=== PATIENT | female | born 1945 | race Caucasian/White ===

== ENCOUNTER → 2018-11-20 13:30 | Outpatient (CLI) | payer MEDICARE, OTHER, SELFPAY ==
--- NOTE | 2018-11-20 | DI.MRI.S_ITS ---
PROCEDURE: MR LUMBAR SPINE WO CON INDICATIONS: Radiculopathy, lumbosacral region TECHNIQUE: Noncontrast sagittal T1 spin echo and T2 fast echo, sagittal STIR, axial T1 and T2 fast spin echo through the lumbar spine. In cases with scoliosis, additional coronal T2 fast spin echo may be performed. COMPARISON: [facility], XA, L/S-SPINE 2-3 VIEWS PAIN DEPT, 10/29/2012, 9:37. [facility], XA, LUMBOSACRAL SPINE 4 VWS PAIN, 06/28/2013, 8:39. [facility], MR, L-SPINE WITHOUT CONTRAST, 12/23/2013, 8:40. [facility], MR, L-SPINE WITHOUT CONTRAST, 10/17/2015, 11:29. [facility], MR, L-SPINE WITHOUT CONTRAST, 12/16/2011, 16:38. FINDINGS: Image quality: Excellent. Alignment and Curvature: Mild dextroconvex scoliotic curvature is seen. Bone Marrow: Marrow is of normal overall signal. No acute vertebral body compression fractures. Scattered foci are seen, which are hyperintense on T1-weighted and T2-weighted imaging, which are most consistent with benign vertebral body hemangiomas. Spinal Cord: Conus medullaris terminates at the L1 level. Visualized cord demonstrates normal signal and size. Paraspinous Soft Tissues: No paravertebral masses. A 3 cm liver cyst is seen posteriorly and medially. T12-L1: Normal appearance. L1-L2: Normal appearance. L2-L3: Mild levoconvex scoliotic curvature is noted. Moderate disc bulge is seen, which is eccentric to the right. Mkis-da-liryzofa facet hypertrophy is seen. There is mild to moderate left-sided and moderate right-sided neural foraminal narrowing seen. These imaging findings have progressed compared to the prior study. L3-L4: Moderate to severe loss of disc height and disc signal are seen. There is a nonacute Schmorl's node seen at the superior endplate of L4. Reactive marrow endplate changes are seen, which are hyperintense on T1-weighted and T2-weighted imaging and most consistent with fatty metaplasia (Modic type II changes). Moderate disc bulge is seen, which is slightly eccentric to the left. Moderate facet joint hypertrophy is seen. Moderate bilateral neural foraminal narrowing is seen, left worse than right. Moderate central canal narrowing is seen. When comparison is made with the prior examination, these findings are similar. L4-L5: Moderate to severe loss of disc height and disc signal are seen. Endplate irregularity is seen. Moderate disc bulge is seen, which is eccentric to the left. There is mild to moderate right-sided and moderate left-sided neural foraminal narrowing seen. Moderate bilateral neural foraminal narrowing is seen, left worse than right. No significant change from the prior. L5-S1: The disc height is well-preserved. Loss of disc signal is seen at this level. Mild generalized disc bulge is seen. There is moderate right-sided and mild left-sided facet hypertrophy seen. Moderate bilateral neural foraminal narrowing is seen, right worse than left. No significant central canal narrowing is seen. There is a synovial cyst seen on the right that is unrelated to the thecal sac. Stable from the prior study. 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 IMPRESSION: Lower lumbar spine degenerative changes are seen, with progression of degenerative change at the L2-L3 level compared to the prior MRI. Dictated by: Kyle Lopez M.D. on 11/22/2018 at 8:08 Approved by: Kyle Lopez M.D. on 11/22/2018 at 8:15
== END ==
PROVIDERS: Family Provider Family Medicine; PCP Family Medicine; Visit Provider Physical Medicine & Rehabilitation Pain Medicine
DX: M47.26 Other spondylosis with radiculopathy, lumbar region (principal); M47.27 Other spondylosis with radiculopathy, lumbosacral region; M41.86 Other forms of scoliosis, lumbar region
CPT/HCPCS: 72148

== ENCOUNTER → 2019-04-22 07:08 | Outpatient (CLI) | payer MEDICARE, OTHER, SELFPAY ==
[2019-04-22 08:00] LABS: BUN Creatinine Ratio 16.7 (6-22); Blood Urea Nitrogen 15 mg/dL (7-17); Calcium 9.8 mg/dL (8.4-10.2); Carbon Dioxide 28 mmol/L (22-32); Chloride 101 mmol/L (98-107); Cholesterol 232 mg/dL (140-199); Estimated Glomerular Filt Rate > 60.0 mL/min (>60); Glucose 87 mg/dL (80-110); HDL Cholesterol 77 mg/dL (40-60); HEMOLYSIS < 15 (0-50); LDL Cholesterol Calculated 141 mg/dL (<100); Potassium 4.6 mmol/L (3.4-5.1); Sodium 136 mmol/L (137-145); Triglycerides 71 mg/dL (35-150)
== END ==
PROVIDERS: PCP Internal Medicine; Visit Provider Internal Medicine
DX: I10 Essential (primary) hypertension (principal); E78.5 Hyperlipidemia, unspecified
CPT/HCPCS: 36415; 80048; 80061

== ENCOUNTER → 2019-05-04 09:30 | Outpatient (CLI) | payer MEDICARE, OTHER, SELFPAY ==
--- NOTE | 2019-05-04 | DI.MG.S_ITS ---
BILATERAL DIGITAL SCREENING MAMMOGRAM 3D/2D WITH CAD: 05/04/2019 CLINICAL: Routine screening. Family history of breast cancer. Comparison is made to exams dated: 09/12/2016 mammogram, 06/16/2014 mammogram, and 02/18/2012 mammogram - [facility]. The tissue of both breasts is heterogeneously dense. This may lower the sensitivity of mammography. Current study was also evaluated with a Computer Aided Detection (CAD) system. No significant masses, calcifications, or other findings are seen in either breast. There has been no significant interval change. IMPRESSION: NEGATIVE There is no mammographic evidence of malignancy. A 1 year screening mammogram is recommended. This exam was interpreted at Station ID: [id number]. NOTE: For mammograms, a report in lay terms will be sent to the patient. Approximately 15% of breast malignancies will not be visualized mammographically. In the management of a palpable breast mass, a negative mammogram must not discourage biopsy of a clinically suspicious lesion. Electronically Signed By: Robina anthony/vito:05/04/2019 14:14:23 letter sent: Normal Exam ACR BI-RADS Category 1: Negative [id number]
== END ==
PROVIDERS: PCP Internal Medicine; Visit Provider Internal Medicine
DX: Z12.31 Encounter for screening mammogram for malignant neoplasm of breast (principal); Z80.3 Family history of malignant neoplasm of breast; M85.851 Other specified disorders of bone density and structure, right thigh; Z78.0 Asymptomatic menopausal state; Z90.722 Acquired absence of ovaries, bilateral
CPT/HCPCS: 77063; 77067; 77080

== ENCOUNTER → 2019-05-13 06:12 | Outpatient (CLI) | payer MEDICARE, OTHER, SELFPAY ==
--- NOTE | 2019-05-13 | DI.MRI.S_ITS ---
PROCEDURE: MR CERVICAL SPINE WO CON INDICATIONS: Cervicalgia TECHNIQUE: Noncontrast sagittal T1 spin echo and T2 fast spin echo, sagittal STIR, foraminal oblique sagittal T2 fast spin echo, and axial gradient echo or T2 fast spin echo through the cervical spine. COMPARISON: [facility], , C-SPINE WITHOUT CONTRAST, 07/28/2014, 18:15. FINDINGS: Image quality: Excellent. Alignment and Curvature: Very minimal degenerative anterolisthesis of C6 on C7 and of C5 on C6. Very minimal degenerative anterolisthesis of C4 on C5 and of C3 on C4. Bone Marrow: Marrow demonstrates normal overall signal. Spinal Cord: Visualized spinal cord has normal size and signal. No cerebellar tonsillar herniation. Paraspinous Soft Tissues: No paravertebral masses. Prevertebral soft tissues are normal in thickness. C2-C3: No canal stenosis. Bilateral facet hypertrophy. Right foramen is patent. Moderate left foraminal narrowing with flattening of the left C3 nerve root sleeve. C3-C4: AP diameter of the canal is 1.1 cm. Left greater than right facet hypertrophy. Left greater than right uncovertebral joint hypertrophy. Moderate right foraminal narrowing with flattening of right left C4 nerve root. Severe left foraminal narrowing with nerve root impingement. C4-C5: Moderate disc height loss. Diffuse posterior osteophyte, eccentric to the left. Flattening of the ventral aspect of the cord. Moderate canal stenosis. Prominent bilateral uncovertebral joint hypertrophy and facet hypertrophy. Severe bilateral foraminal narrowing with nerve root impingement. C5-C6: Minimal degenerative retrolisthesis of C5 on C6. Diffuse posterior disc bulge. Bilateral facet hypertrophy and uncovertebral joint osteophyte. Severe right and moderately severe left foraminal narrowing with bilateral foraminal nerve root impingement. C6-C7: Minimal degenerative retrolisthesis of C6 on C7. Diffuse posterior disc bulge plus osteophyte, asymmetric to the right. Moderate canal stenosis. Bilateral facet hypertrophy. Bilateral uncovertebral joint hypertrophy. Severe bilateral foraminal narrowing with foraminal nerve root impingement. C7-T1: No canal stenosis or foraminal stenosis. IMPRESSION: 1. Diffuse spondylitic change. 2. Moderate multifactorial canal stenosis at C4-C5 through C6-C7. 3. Significant multilevel foraminal narrowing as described above. Dictated by: Dong Chavarria M.D. on 05/13/2019 at 8:14 Approved by: Dong Chavarria M.D. on 05/13/2019 at 8:31
== END ==
PROVIDERS: PCP Internal Medicine; Visit Provider Physical Medicine & Rehabilitation Pain Medicine
DX: M54.2 Cervicalgia (principal); M48.02 Spinal stenosis, cervical region
CPT/HCPCS: 72141

== ENCOUNTER → 2019-06-27 07:31 | Outpatient (CLI) | payer MEDICARE, OTHER, SELFPAY ==
[2019-06-27 08:38] LABS: Alanine Aminotransferase 20 IU/L (<35); Aspartate Aminotransferase 31 IU/L (14-36); Cholesterol 186 mg/dL (140-199); HDL Cholesterol 78 mg/dL (40-60); LDL Cholesterol Calculated 94 mg/dL (<100); Triglycerides 72 mg/dL (35-150)
== END ==
PROVIDERS: PCP Internal Medicine; Visit Provider Internal Medicine
DX: E78.00 Pure hypercholesterolemia, unspecified (principal)
CPT/HCPCS: 36415; 80061; 84450; 84460

== ENCOUNTER → 2020-02-27 07:24 | Outpatient (CLI) | payer MEDICARE, OTHER, SELFPAY ==
[2020-02-27 08:02] LABS: Add Manual Diff / Slide Review NO; Basophils Absolute Auto 0 /uL (0-100); Basophils Percent Auto 0.7 % (0-2); Eosinophils Absolute Auto 100 /uL (0-450); Eosinophils Percent Auto 1.9 % (2-4); Hemoglobin 12.7 g/dL (12.0-16.0); Lymphocytes Absolute Auto 1400 /uL (1100-4500); Lymphocytes Percent Auto 35.6 % (25-40); Mean Corpuscular HGB Conc 34.2 % (30-36); Mean Corpuscular Hemoglobin 31.4 PG (26-34); Mean Corpuscular Volume 91.7 fL (80-100); Monocytes Absolute Auto 400 /uL (0-900); Monocytes Percent Auto 10.7 % (3-14); Neutrophils Absolute Auto 2000 /uL (1500-7000); Neutrophils Percent Auto 51.1 % (50-75); Platelet Count 285 X10^3/uL (150-400); Red Blood Cell Count 4.03 X10^6/uL (4.0-5.2); Red Cell Distribution Width 13.2 % (11.6-14.8); White Blood Cell Count 3.9 X10^3/uL (4.5-11.0)
[2020-02-27 08:22] LABS: BUN Creatinine Ratio 17.4 (6-22); Blood Urea Nitrogen 15 mg/dL (7-17); Calcium 9.9 mg/dL (8.4-10.2); Carbon Dioxide 29 mmol/L (22-32); Chloride 100 mmol/L (98-107); Estimated Glomerular Filt Rate > 60.0 mL/min (>60); Glucose 93 mg/dL (80-110); HEMOLYSIS < 15 (0-50); Potassium 4.6 mmol/L (3.4-5.1); Sodium 134 mmol/L (137-145)
== END ==
PROVIDERS: PCP Internal Medicine; Referring Provider Specialist; Visit Provider Specialist
DX: Z01.818 Encounter for other preprocedural examination (principal); I10 Essential (primary) hypertension
CPT/HCPCS: 36415; 80048; 85025

== ENCOUNTER → 2020-03-02 08:43 | Outpatient (CLI) | payer MEDICARE, OTHER, SELFPAY ==
[2020-03-04 02:39] LABS: COVID19 Sendout Not Detected (Not Detect)
== END ==
PROVIDERS: PCP Internal Medicine; Visit Provider Physician Assistant
DX: Z01.818 Encounter for other preprocedural examination (principal)
CPT/HCPCS: 87635

== ENCOUNTER 2020-03-05 08:51 | Day surgery (SDC) | payer MEDICARE, OTHER, SELFPAY ==
[2020-02-28 07:22] VITALS: BMI 20.2
[2020-03-05] VITALS (14 sets, daily range): BP systolic 126–156; BP diastolic 67–85; PULSE 68–94; RESP 12–19; TEMP 36–37.2; O2SAT 98–100; BMI 20.2
[2020-03-05] MEDS: LACTATED RINGERS 1,000 ML 100 ML IV ×3 (09:21→22:49)
--- NOTE | 2020-03-05 09:59 | PM.PREOP ---
Pre-operative Note COVID-19 COVID-19 status: Negative Result date/Date tested (Pos, Neg/Pending): 03/02/20 Interval Note History & Physical reviewed/Exam performed by Physician: Yes Changes to H&P: No
[2020-03-05] MEDS: CEFAZOLIN 2 GM/100 ML FROZ.PIGGY IV (11:06)
--- NOTE | 2020-03-05 11:28 | SUR.OPER ---
Lithotomy on padded OR bed, head on pillow, arms secured on padded arm boards at <90 degrees abduction. Legs secured in padded yellow fins stirrups.
[2020-03-05] MEDS: BUPIVACAINE 0.5% W/ EPI (PF) 30 ML VIAL INJ (11:33)
[2020-03-05] MEDS: SODIUM CHLORIDE 0.9% 50 ML INJ (11:33)
--- NOTE | 2020-03-05 12:02 | PM.OP.1 ---
Operative Date/Time/Diagnoses Date of procedure: 03/05/20 Time of procedure: 12:02 Pre-op diagnosis: symptomatic cystocele post hysterectomy Post-op diagnosis: same Procedure & Clinicians Procedure: anterior repair Same procedure as scheduled: Yes Indications: symptomatic cystocele with no incontinence post hysterectomy Surgeon: Dacia Muñoz Click Yes if Unassisted: Yes Anesthesia Type: General Operative Notes Findings: cystocele that prolapses to the hymen with urethral well-supported an vaginal cuff with minimal prolapse and no rectocele Closure Type: primary Specimen(s): none sent Applied: catheter ( Mixon) and other ( vaginal packing) Estimated Blood Loss (mL): 10 Blood products transfused: none Procedure in detail: Patient was brought to the operating room where she underwent general anesthesia. She was placed in low Yellofin stirrups and prepped and draped in the usual sterile fashion. Warming was in place. 2 g of Ancef were in prior to beginning of the case. Pulsatile stockings were in place and functional. A check system was reviewed with the staff in the room prior to beginning the case. A Mixon catheter was placed. The area of the cystocele was injected with 30 cc of 0.5% Marcaine with epinephrine. Incision was made over the cystocele with a scalpel. Dissection was undertaken laterally with sharp and blunt dissection. The cystocele caliber was decreased with a pursestring suture of 2 0 Vicryl. Plicating sutures of 0 Vicryl suture were placed followed by a layer of 2 0 Vicryl plicating sutures. The vaginal incision was repaired with running 2 0 Vicryl suture. Vaginal packing was placed. Patient went to recovery room in good condition. Counts of instruments and sponges were correct Complications: none Post-operative Condition: stable Disposition: Acute Care Plan for aftercare: Will remove vaginal packing and Mixon in a.m. patient will be discharged after bladder trial
[2020-03-05] MEDS: ONDANSETRON 4 MG/2 ML INJ IV (12:05)
--- NOTE | 2020-03-05 12:57 | SUR.PHASEI ---
Pt transferred to room 204 via bed with all belongings. Pt's last vital signs stable and pain controlled; see flowsheet documentation for details. Report given to GISSELLE Shultz prior to transfer. Upon arrival to room 204 GISSELLE John at bedside; handoff assessment completed. Carrington to assume care of pt at this time.
--- NOTE | 2020-03-05 13:12 | PC.NURSE ---
Day shift: Pt on unit at approx 1300 from PACU. Oriented to room and call light. Agrees to not get OOB w/o help from staff. Tolerating SCD's. Pt has no c/o pain or discomfort. VS WNL. Call light in reach.
--- NOTE | 2020-03-05 15:50 | PC.NURSE ---
Assumed care of pt at 1500. Pt resting in bed during bedside hand-off. Denies pain. Mixon draining to gravity. VAG packing and dom-pad in place. Dom-pad c/d/i. Pt states she takes Ambien at and would like some tonight. Msg left with Dr. Muñoz's office. Awaiting orders. Pt verbalized she will call for needs.
[2020-03-05] MEDS: ACETAMINOPHEN 325 MG TABLET 650 MG PO (23:51)
[2020-03-06] VITALS: BP 126/68; PULSE 70; RESP 16; TEMP 36.3; O2SAT 97
[2020-03-06 00:05] VITALS: O2SAT 97
[2020-03-06] MEDS: ACETAMINOPHEN 325 MG TABLET 650 MG PO (05:16)
[2020-03-06 05:45] VITALS: BP 120/64; PULSE 66; RESP 16; TEMP 36.2; O2SAT 98
[2020-03-06] MEDS: AMLODIPINE 5 MG TABLET PO (07:35)
[2020-03-06] MEDS: lisinopriL 20 MG TABLET PO (07:35)
[2020-03-06] MEDS: IBUPROFEN 600 MG TABLET PO (08:03)
[2020-03-06 08:06] VITALS: O2SAT 98
--- NOTE | 2020-03-06 08:44 | CM.DANOTE ---
DCP: Case received, EMR reviewed and met with patient. Introduced self and role. Was able to obtain information from patient regarding baseline activity level prior to surgery. DCP assessment completed with information currently available. Patient is a 74 year old female who admitted yesterday morning to the care of the surgical/OBGYN team. PCP: Dr. Reina Best. Payer: confirmed: Medicare/[employer]. Patient came to the hospital for a surgical procedure. She had a Urethrocele performed yesterday. Met with patient in her room. She was sitting up in bed. She is independent, drives. Confirmed that she lives with her , Chip. She also mentioned that he does have some Parkinsons, but is high functioning, and also drives. She stated that he will assist her at home for any needs. P: DCP to continue to follow. Patient should be able to go home when she is medically stable. Malou De La Vega RN/Journe[employer] Pipe [employer]
[2020-03-06 08:52] VITALS: BP 126/67; PULSE 67; RESP 15; TEMP 36.2; O2SAT 100
--- NOTE | 2020-03-06 09:42 | PM.DS.1 ---
History of Present Illness History of Present Illness Date Patient Seen: 03/06/20 Time Patient Seen: 09:42 Chief complaint: PELVIC *OPB* Narrative: Patient with symptomatic cystocele who underwent a anterior repair on 03/05/2020. Patient is feeling well. She only use Tylenol for pain. Her Mixon catheter and vaginal packing were removed. Patient passed her bladder trial and was discharged home Discharge Providers Provider Discharge Date: 03/06/20 Primary care physician: Reina Best MD Discharge provider: Dacia Watson MD Summary Hospital Course Discharge Diagnosis: Cystocele Hospital Course: Patient underwent an anterior repair on 03/05/2020 for symptomatic cystocele post hysterectomy. Patient had her vaginal packing and Mixon catheter removed on 03/06/2020. Patient was able to urinate with a minimal postvoid residual. Status at Discharge Cognitive/behavioral status at discharge: oriented Functional status at discharge: independent ambulation Overall status at discharge: patient is progressing back to baseline Time Spent with Patient Time spent: Less than 30 minutes Exam Vital Signs (past 8 hours): - 03/06/20 05:45 03/06/20 08:06 Temperature 97.2 F L Pulse Rate 66 Respiratory Rate 16 Blood Pressure 120/64 Pulse Oximetry 98 98 Oxygen Delivery Method Room Air Oxygen Flow Rate 0 Narrative Exam Narrative: Patient's abdomen is soft, nontender. External genitalia and normal. Vaginal packing removed with small amount of blood on it. Mixon catheter removed. Extremities without edema and nontender. Discharge Assessment & Plan Assessment and Plan Assessment: Symptomatic cystocele post anterior repair Plan of Treatment: Home l Discharge Plan Discharge Plan Patient Disposition: Home Discharge Med Rec/Prescriptions Prescriptions: Continued doxycycline hyclate 20 mg tablet 20 mg PO ONCE RF: 0 zolpidem 5 mg tablet 5 mg PO BEDTIME PRN (Reason: Sleep) RF: 0 lisinopril 20 mg tablet 20 mg PO DAILY RF: 0 atorvastatin 10 mg tablet 10 mg PO DAILY RF: 0 amlodipine 5 mg tablet 5 mg PO DAILY RF: 0 Follow up/Referrals: Dacia Watson MD [Physician] - 2 Weeks (appt:03/22 @ 3:[address] watson please arrive 15 minutes prior to your scheduled appointment ) Reina Best MD [Primary Care Provider] - Discharge Orders: Discharge (Order); Ordered 03/06/20 Ordered By: Dacia Watson Provider Discharge Instructions Diet: Regular Activity: Nothing in vagina or lifting over 20 lb for 6 weeks Skin/Wound/Dressing Care Report to your healthcare provider any signs of infection, such as:: chills, fever and increased pain Visit Report/Discharge Packet Instructions: Cystocele and Rectocele Repair, How to Prevent Falls Stand Alone Forms: Surgery Discharge Discharge Data Primary Care Provider: Reina Best Attending Provider: Dacia Watson Discharges patient from system. Discharge Date/Time: 03/06/20 11:24 Quality VTE Deep Vein Thrombosis/Pulmonary Embolism Present on Admission: No
--- NOTE | 2020-03-06 11:09 | PC.NURSE ---
Day shift: Pt voided approx 500ml of urine w/ 12mls post residual per bladder scan. Per MD orders ok for Pt to d/c now.
--- NOTE | 2020-03-06 11:23 | PC.NURSE ---
Day shift: Pt taken to car driven by spouse in WC by LUDWIN. Paperwork is signed and all questions answered. Pt has all personal belongings. NO new MD scripts. Pt verbalized being so happy to be going home at this time.
== END 2020-03-06 11:24 | disposition home or self-care (01) ==
LOC: OR 12:24 → AC 12:25
PROVIDERS: PCP Internal Medicine; Referring Provider Specialist; Visit Provider Specialist
PROC: (CPT 57240; principal; 2020-03-05 10:15)
DX: N81.11 Cystocele, midline (principal); I10 Essential (primary) hypertension; E78.5 Hyperlipidemia, unspecified
CPT/HCPCS: 57240; J0690; J1100; J2250; J2405; J2704; J3010

== ENCOUNTER → 2020-09-27 07:01 | Outpatient (CLI) | payer MEDICARE, OTHER, SELFPAY ==
[2020-03-05 13:09] VITALS: BMI 20.2
[2020-09-27 08:29] LABS: Alanine Aminotransferase 21 IU/L (<35); Albumin Globulin Ratio 1.4 (1.0-2.8); Alkaline Phosphatase 90 U/L (38-126); Aspartate Aminotransferase 29 IU/L (14-36); Bilirubin Total 0.6 mg/dL (0.2-1.3); Blood Urea Nitrogen 13 mg/dL (7-17); Calcium 9.8 mg/dL (8.4-10.2); Carbon Dioxide 32 mmol/L (22-32); Chloride 103 mmol/L (98-107); Cholesterol 174 mg/dL (140-199); Estimated Glomerular Filt Rate 58.8 mL/min (>60); Globulin 2.9 g/dL (1.7-4.1); Glucose 87 mg/dL (80-110); HDL Cholesterol 86 mg/dL (40-60); HEMOLYSIS < 15 (0-50); LDL Cholesterol Calculated 75 mg/dL (<100); Potassium 4.5 mmol/L (3.4-5.1); Sodium 136 mmol/L (137-145); Total Protein 6.9 g/dL (6.3-8.2); Triglycerides 66 mg/dL (35-150)
== END ==
PROVIDERS: PCP Internal Medicine; Referring Provider Internal Medicine; Visit Provider Internal Medicine
DX: E78.00 Pure hypercholesterolemia, unspecified (principal)
CPT/HCPCS: 36415; 80053; 80061

== ENCOUNTER → 2020-12-26 11:45 | Outpatient (CLI) | payer MEDICARE, OTHER, SELFPAY ==
[2020-03-05 13:09] VITALS: BMI 20.2
== END ==
PROVIDERS: PCP Internal Medicine; Referring Provider Specialist; Visit Provider Specialist
DX: R39.9 Unspecified symptoms and signs involving the genitourinary system (principal)
CPT/HCPCS: 87077; 87086; 87186

== ENCOUNTER → 2021-02-06 06:40 | Outpatient (CLI) | payer MEDICARE, OTHER, SELFPAY ==
[2020-03-05 13:09] VITALS: BMI 20.2
--- NOTE | 2021-02-06 | DI.MRI.S_ITS ---
PROCEDURE: MR HEAD/BRAIN WO/W CON INDICATIONS: Unspecified hearing loss, unspecified ear TECHNIQUE: Noncontrast sagittal T1 spin echo, axial T2 fast spin echo, axial FLAIR, axial gradient echo, axial diffusion and ADC through the brain. Axial/sagittal/coronal 3-D CISS, thin-slice axial T1 spin echo with fat saturation through the skull base. After the administration of contrast, axial and coronal thin-slice T1 spin echo with fat saturation through the skull base, axial T1 spin echo with fat saturation through the brain. COMPARISON: None. FINDINGS: Image quality: Excellent. The ventricular system and cortical sulci demonstrate atrophy, consistent for the patient's stated age. There are areas of increased T2/FLAIR signal intensity within the periventricular and subcortical white matter. There is no acute intra-or extra axial fluid collection. No acute hemorrhage, mass lesion or midline shift. Brainstem is unremarkable. There are no areas of restricted diffusion. Visualized cranial nerves and cerebellopontine angles demonstrate no areas of abnormal signal, mass lesion or enhancement. Globes are symmetrical. Sinuses are aerated. Osseous structures are intact. IMPRESSION: 1. No acute intracranial process. 2. Moderate atrophy and chronic microvascular ischemic changes. 3. Visualized cranial nerves and cerebellopontine angles demonstrate no areas of abnormal signal, mass lesion or enhancement. Dictated by: Odilia Andrea M.D. on 02/06/2021 at 15:02 Approved by: Odilia Andrea M.D. on 02/06/2021 at 15:05
== END ==
PROVIDERS: PCP Internal Medicine; Referring Provider Internal Medicine; Visit Provider Internal Medicine
DX: H92.02 Otalgia, left ear (principal); H91.90 Unspecified hearing loss, unspecified ear
CPT/HCPCS: 70553

== ENCOUNTER 2021-03-20 07:30 | Outpatient (RCR) | payer MEDICARE, OTHER, SELFPAY ==
[2020-03-05 13:09] VITALS: BMI 20.2
--- NOTE | 2021-02-06 16:13 | PT.OIE ---
Current Diagnoses Other specified disorders of muscle (02/06/21) Past Medical History (Last Updated 02/28/20 @ 07:26 by Consuelo Bowling RN) Cystitis Glomerulonephritis History of arthroscopy History of hysterectomy (1999) History of laparotomy History of surgery (1999) Hx of appendectomy Hx of bilateral cataract extraction (2015) Pneumonia Past Surgical History (Last Updated 02/28/20 @ 07:34 by Consuelo Bowling RN) History of arthroscopy History of hysterectomy (1999) History of laparotomy History of surgery (1999) Hx of appendectomy Hx of bilateral cataract extraction (2014) Visit Care Team Role Provider Type Reina Best MD Primary Care Provider Physician Specialty: Internal Medicine Address: [address] [place] [address] Email: [email or web address] Dacia Muñoz MD Attending Provider Physician Referring Provider Specialty: SALAD BAR CLERK Address: [address] [place] [address], [id number] Email: [email or web address] Therapy Initial Evaluation PT-OP-A Visit Information Start: 02/05/21 15:25 Freq: Status: Active Protocol: Document 02/06/21 08:15 AMB (Rec: 02/06/21 15:52 AMB [id number]) Out-Patient Physical Therapy Visit Information Visit Information Visit Type Initial Evaluation PT-OP-B Current Condition Start: 02/05/21 15:25 Freq: Status: Active Protocol: Document 02/06/21 08:14 AMB (Rec: 02/06/21 08:43 AMB [id number]) Current Condition History of Current Condition History of Current Condition Difficulty voiding urine after a bowel movement. Everything was good after surgery but still has a little bit of fullness. Leaking as colon fills. Had a hysterectomy in , cystocele repair with mesh . Internal pressure that can cause leaking. BM 2x/day 3-4 bristol stool scale. 2 vaginal deliveries with a forceps delivery, normal delivery but did tear with second. Constant coughing. PT-OP-C Subjective Start: 02/05/21 15:25 Freq: Status: Active Protocol: Document 02/06/21 16:06 AMB (Rec: 06/30/21 16:11 AMB [id number]) Patient Questionnaires Pelvic Pain and Urgency/Frequency Patient Symptom Scale Pelvic Pain Score 6 PT-OP-I Pelvic Floor Start: 02/05/21 15:25 Freq: Status: Active Protocol: Document 02/06/21 16:06 AMB (Rec: 02/06/21 16:11 AMB [id number]) Pelvic Floor Assessment Urine Pelvic Floor Surgery Yes: hysterectomy, then bladder sling surgery, Urinary Symptoms Hesitancy,Falling Out Feeling/ Heavy Leakage Size Small Other Leakage Causes full rectum Nocturia 2-3 Urine Pad Type Panty Liner Bowel Bowel Surgery No Bowel Movement Frequency 2x/day [place] Stool Chart Type 1-7 3 Pelvic Clock Pelvic Clock 12-3 Atrophy,Hypertonic Pelvic Clock 3-6 Atrophy,Hypertonic Pelvic Clock 6-9 Atrophy,Hypertonic Pelvic Clock 9-12 Atrophy,Hypertonic Contraction Ability Voluntary Contraction Weak Voluntary Relaxation Weak Manual Muscle Testing Left 1 Manual Muscle Testing Right 1 Manual Muscle Testing Anterior 1 Manual Muscle Testing Posterior 2 Muscle Endurance (Seconds) 2 Number of Quick Contractions In 10 3 Seconds Comments Pelvic Floor Comments poor control and tendency to use glutes and hold breath to try to contract PT-OP-T Assessment and Plan Start: 02/05/21 15:25 Freq: Status: Active Protocol: Document 02/06/21 08:15 AMB (Rec: 02/06/21 15:52 AMB [id number]) Physical Therapy Assessment Rehab Potential Rehabilitation Potential Good Evaluation Complexity Number of Personal Factors/Comorbidities 1-2 Number of Body Systems Impaired 3 Clinical Presentation at Evaluation Evolving Impairments Impairments Functional Activities,Soft Tissue Mobility,Strength Goals Three Impairment Incomplete emptying Short Term Goal (STG) Jessica will be able to completley void her bladder no matter if she has had a bowel movement in the last few hours or not. STG Duration 4 weeks Two Impairment Urinary leaking Nonprofit Director Goal (LTG) Jessica will employ pelvic floor contractions so that she can avoid leaking urine no matter how full her rectum is. LTG Duration 8 weeks One Impairment Pelvic floor strength Short Term Goal (STG) Jessica will improve her pelvic floor strength to 3/5. STG Duration 4 weeks Skilled Nursing Goal (LTG) Jessica will improve her pelvic floor strength so she can perform a kegel for 10 seconds in standing. LTG Duration 8 weeks Assessment Summary Assessment Jessica attends physical therapy s/p multiple surgeries for pelvic organ prolapse. Currently her main symptom is not being able to fully void urine when the colon is full . She has 2 bowel movements a day and does not have signficant constipation or significant prolapse. She is quite weak with her pelvic floor contractions, tending to use glutes and hold her breath instead of activating her pelvic floor. She will benefit from physical therapy to help her improve her pelvic floor strength to decrease her urinary leaking and pelvic pressure. Physical Therapy Plan Frequency and Duration Frequency of Treatment 1x/Week Duration of Treatment 8 weeks Plan of Care Start Date 02/06/21 Plan of Care End Date 04/03/21 Therapeutic Interventions Therapeutic Interventions Home Exercise Program,Manual Therapy,Neuromuscular Re- education,Self-Care/Home Management,Soft Tissue Mobilization,Therapeutic Activities,Therapeutic Exercises Modalities Biofeedback,Electric Stimulation Next Visit Focus/Plan Next Note Type Treatment Note Next Visit Plan pelvic floor strengthening with discussion of pressure management options
--- NOTE | 2021-02-06 16:13 | PT.OPPOC ---
Physical, Occupational & Speech Therapy At [facility] Current Diagnoses Other specified disorders of muscle (02/06/21) Visit Care Team Role Provider Type Reina Best MD Primary Care Provider Physician Specialty: Internal Medicine Address: [address] [place] [address], [id number] Email: [email or web address] Dacia Muñoz MD Attending Provider Physician Referring Provider Specialty: [employer] Address: [address] [place] [address], [address] Email: [email or web address] Plan Of Care PT-OP-T Assessment and Plan Start: 02/05/21 15:25 Freq: Status: Active Protocol: Document 02/06/21 08:15 AMB (Rec: 02/06/21 15:52 AMB [id number]) Physical Therapy Assessment Rehab Potential Rehabilitation Potential Good Evaluation Complexity Number of Personal Factors/Comorbidities 1-2 Number of Body Systems Impaired 3 Clinical Presentation at Evaluation Evolving Impairments Impairments Functional Activities,Soft Tissue Mobility,Strength Goals Three Impairment Incomplete emptying Short Term Goal (STG) Jessica will be able to completley void her bladder no matter if she has had a bowel movement in the last few hours or not. STG Duration 4 weeks Two Impairment Urinary leaking [employer] Goal (LTG) Jessica will employ pelvic floor contractions so that she can avoid leaking urine no matter how full her rectum is. LTG Duration 8 weeks One Impairment Pelvic floor strength Short Term Goal (STG) Jessica will improve her pelvic floor strength to 3/5. STG Duration 4 weeks [employer] Goal (LTG) Jessica will improve her pelvic floor strength so she can perform a kegel for 10 seconds in standing. LTG Duration 8 weeks Assessment Summary Assessment Jessica attends physical therapy s/p multiple surgeries for pelvic organ prolapse. Currently her main symptom is not being able to fully void urine when the colon is full . She has 2 bowel movements a day and does not have signficant constipation or significant prolapse. She is quite weak with her pelvic floor contractions, tending to use glutes and hold her breath instead of activating her pelvic floor. She will benefit from physical therapy to help her improve her pelvic floor strength to decrease her urinary leaking and pelvic pressure. Physical Therapy Plan Frequency and Duration Frequency of Treatment 1x/Week Duration of Treatment 8 weeks Plan of Care Start Date 02/06/21 Plan of Care End Date 04/03/21 Therapeutic Interventions Therapeutic Interventions Home Exercise Program,Manual Therapy,Neuromuscular Re- education,Self-Care/Home Management,Soft Tissue Mobilization,Therapeutic Activities,Therapeutic Exercises Modalities Biofeedback,Electric Stimulation Next Visit Focus/Plan Next Note Type Treatment Note Next Visit Plan pelvic floor strengthening with discussion of pressure management options Plan of Care Dates Plan of Care Start Date 02/06/21 Plan of Care End Date 04/03/21 Electronically Signed by: Jacki Martínez, PT 02/06/21 [id number] Please Sign and Return: I have reviewed this Plan of Care and certify that the skilled therapy services above are required to meet the patient?s needs. Physician Signature Date Printed Name and Credentials Clinical Instructor Signature Printed Name and Credentials
--- NOTE | 2021-02-13 15:34 | PT.OTN ---
Current Diagnoses Other specified disorders of muscle (02/13/21) Physical Therapy Treatment Note PT-OP-A Visit Information Start: 02/05/21 15:25 Freq: Status: Active Protocol: Document 02/13/21 11:15 AMB (Rec: 02/13/21 11:59 AMB [id number]) Out-Patient Physical Therapy Visit Information Visit Information Visit Type Treatment Note Visit Start Time 11:15 Visit Stop Time 12:00 Total Visit Minutes 45 Visit Number 2 PT-OP-B Current Condition Start: 02/05/21 15:25 Freq: Status: Active Protocol: Document 02/06/21 08:14 AMB (Rec: 02/06/21 08:43 AMB [id number]) Current Condition History of Current Condition History of Current Condition Difficulty voiding urine after a bowel movement. Everything was good after surgery but still has a little bit of fullness. Leaking as colon fills. Had a hysterectomy in , cystocele repair with mesh . Internal pressure that can cause leaking. BM 2x/day 3-4 bristol stool scale. 2 vaginal deliveries with a forceps delivery, normal delivery but did tear with second. Constant coughing. PT-OP-C Subjective Start: 02/05/21 15:25 Freq: Status: Active Protocol: Document 02/13/21 11:15 AMB (Rec: 02/13/21 15:34 AMB [email or web address]) OP-PT Subjective Patient Comments Patient Comments Jessica reports sx are about the same, she has been doing her exercises. PT-OP-I Pelvic Floor Start: 02/05/21 15:25 Freq: Status: Active Protocol: Document 02/06/21 16:06 AMB (Rec: 02/06/21 16:11 AMB [email or web address]) Pelvic Floor Assessment Urine Pelvic Floor Surgery Yes: hysterectomy, then bladder sling surgery, Urinary Symptoms Hesitancy,Falling Out Feeling/ Heavy Leakage Size Small Other Leakage Causes full rectum Nocturia 2-3 Urine Pad Type Panty Liner Bowel Bowel Surgery No Bowel Movement Frequency 2x/day [place] Stool Chart Type 1-7 3 Pelvic Clock Pelvic Clock 12-3 Atrophy,Hypertonic Pelvic Clock 3-6 Atrophy,Hypertonic Pelvic Clock 6-9 Atrophy,Hypertonic Pelvic Clock 9-12 Atrophy,Hypertonic Contraction Ability Voluntary Contraction Weak Voluntary Relaxation Weak Manual Muscle Testing Left 1 Manual Muscle Testing Right 1 Manual Muscle Testing Anterior 1 Manual Muscle Testing Posterior 2 Muscle Endurance (Seconds) 2 Number of Quick Contractions In 10 3 Seconds Comments Pelvic Floor Comments poor control and tendency to use glutes and hold breath to try to contract PT-OP-Q Treatments Start: 02/05/21 15:25 Freq: Status: Active Protocol: Document 02/13/21 11:15 AMB (Rec: 02/13/21 15:34 AMB [email or web address]) Therapeutic Exercises Supine Exercises 1 Supine Exercise Name Quick flicks and long holds Neuro Re-Education Treatment Other Activities 1 Details sEMG Comments baseline close to 0, at strongest 11, but was using glutes, some difficulty inserting sensor without pain. PT-OP-T Assessment and Plan Start: 02/05/21 15:25 Freq: Status: Active Protocol: Document 02/13/21 11:15 AMB (Rec: 02/13/21 15:34 AMB [email or web address]) Physical Therapy Assessment Assessment Summary Assessment Jessica is continuing to describe difficulty voiding urine when she feels her rectocele is worse. Educated in feet up positioning for sx relief, discussed relaxation of pelvic floor as well as strengthening, looked good on biofeedback but pt does continue to try to use glutes instead of pelvic floor. Physical Therapy Plan Next Visit Focus/Plan Next Note Type Treatment Note Next Visit Plan pelvic floor strengthening with discussion of pressure management options
--- NOTE | 2021-02-20 11:18 | PT.OTN ---
Current Diagnoses Other specified disorders of muscle (02/20/21) Physical Therapy Treatment Note PT-OP-A Visit Information Start: 02/05/21 15:25 Freq: Status: Active Protocol: Document 02/20/21 08:15 AMB (Rec: 02/20/21 10:16 AMB [id number]) Out-Patient Physical Therapy Visit Information Visit Information Visit Type Treatment Note Visit Start Time 08:15 Visit Stop Time 09:00 Total Visit Minutes 45 Visit Number 3 PT-OP-B Current Condition Start: 02/05/21 15:25 Freq: Status: Active Protocol: Document 02/06/21 08:14 AMB (Rec: 02/06/21 08:43 AMB [id number]) Current Condition History of Current Condition History of Current Condition Difficulty voiding urine after a bowel movement. Everything was good after surgery but still has a little bit of fullness. Leaking as colon fills. Had a hysterectomy in , cystocele repair with mesh . Internal pressure that can cause leaking. BM 2x/day 3-4 bristol stool scale. 2 vaginal deliveries with a forceps delivery, normal delivery but did tear with second. Constant coughing. PT-OP-C Subjective Start: 02/05/21 15:25 Freq: Status: Active Protocol: Document 02/20/21 08:15 AMB (Rec: 02/20/21 10:16 AMB [id number]) OP-PT Subjective Patient Comments Patient Comments Jessica reports doing exercises , feels sx are about the same. PT-OP-I Pelvic Floor Start: 02/05/21 15:25 Freq: Status: Active Protocol: Document 02/06/21 16:06 AMB (Rec: 02/06/21 16:11 AMB [email or web address]) Pelvic Floor Assessment Urine Pelvic Floor Surgery Yes: hysterectomy, then bladder sling surgery, Urinary Symptoms Hesitancy,Falling Out Feeling/ Heavy Leakage Size Small Other Leakage Causes full rectum Nocturia 2-3 Urine Pad Type Panty Liner Bowel Bowel Surgery No Bowel Movement Frequency 2x/day [place] Stool Chart Type 1-7 3 Pelvic Clock Pelvic Clock 12-3 Atrophy,Hypertonic Pelvic Clock 3-6 Atrophy,Hypertonic Pelvic Clock 6-9 Atrophy,Hypertonic Pelvic Clock 9-12 Atrophy,Hypertonic Contraction Ability Voluntary Contraction Weak Voluntary Relaxation Weak Manual Muscle Testing Left 1 Manual Muscle Testing Right 1 Manual Muscle Testing Anterior 1 Manual Muscle Testing Posterior 2 Muscle Endurance (Seconds) 2 Number of Quick Contractions In 10 3 Seconds Comments Pelvic Floor Comments poor control and tendency to use glutes and hold breath to try to contract PT-OP-Q Treatments Start: 02/05/21 15:25 Freq: Status: Active Protocol: Document 02/20/21 08:15 AMB (Rec: 02/20/21 11:16 AMB [id number]) Therapeutic Exercises Supine Exercises roll in roll out Resistance #3 t band Reps/Minutes 3x10 ea 1 Supine Exercise Name Quick flicks and long holds Standing Exercises 2 Standing Exercise Name PF contract with wide stance and stride stance Reps/Minutes 2x10 1 Standing Exercise Name PF contract with squats/lunges Reps/Minutes 10 PT-OP-T Assessment and Plan Start: 02/05/21 15:25 Freq: Status: Active Protocol: Document 02/20/21 08:15 AMB (Rec: 02/20/21 10:16 AMB [id number]) Physical Therapy Assessment Assessment Summary Assessment Jessica had a leak when she had recently voided and bent over . Encouraged to take more time to void, to engage PF when doing activities that increase abdominal pressure. Physical Therapy Plan Next Visit Focus/Plan Next Note Type Treatment Note Next Visit Plan pelvic floor strengthening with discussion of pressure management options
--- NOTE | 2021-03-20 14:10 | PT.OTN ---
Current Diagnoses Other specified disorders of muscle (03/20/21) Physical Therapy Treatment Note PT-OP-A Visit Information Start: 02/05/21 15:25 Freq: Status: Active Protocol: Document 03/20/21 07:30 AMB (Rec: 03/20/21 14:08 AMB [email or web address]) Out-Patient Physical Therapy Visit Information Visit Information Visit Type Treatment Note Visit Start Time 07:30 Visit Stop Time 08:15 Total Visit Minutes 45 Visit Number 4 PT-OP-B Current Condition Start: 02/05/21 15:25 Freq: Status: Active Protocol: Document 02/06/21 08:14 AMB (Rec: 02/06/21 08:43 AMB [id number]) Current Condition History of Current Condition History of Current Condition Difficulty voiding urine after a bowel movement. Everything was good after surgery but still has a little bit of fullness. Leaking as colon fills. Had a hysterectomy in , cystocele repair with mesh . Internal pressure that can cause leaking. BM 2x/day 3-4 bristol stool scale. 2 vaginal deliveries with a forceps delivery, normal delivery but did tear with second. Constant coughing. PT-OP-C Subjective Start: 02/05/21 15:25 Freq: Status: Active Protocol: Document 03/20/21 07:30 AMB (Rec: 03/20/21 14:08 AMB [email or web address]) OP-PT Subjective Patient Comments Patient Comments Jessica has been doing her exercises, she continues to have pelvic heaviness and leaking when she bends forward . PT-OP-I Pelvic Floor Start: 02/05/21 15:25 Freq: Status: Active Protocol: Document 02/06/21 16:06 AMB (Rec: 02/06/21 16:11 AMB [email or web address]) Pelvic Floor Assessment Urine Pelvic Floor Surgery Yes: hysterectomy, then bladder sling surgery, Urinary Symptoms Hesitancy,Falling Out Feeling/ Heavy Leakage Size Small Other Leakage Causes full rectum Nocturia 2-3 Urine Pad Type Panty Liner Bowel Bowel Surgery No Bowel Movement Frequency 2x/day [place] Stool Chart Type 1-7 3 Pelvic Clock Pelvic Clock 12-3 Atrophy,Hypertonic Pelvic Clock 3-6 Atrophy,Hypertonic Pelvic Clock 6-9 Atrophy,Hypertonic Pelvic Clock 9-12 Atrophy,Hypertonic Contraction Ability Voluntary Contraction Weak Voluntary Relaxation Weak Manual Muscle Testing Left 1 Manual Muscle Testing Right 1 Manual Muscle Testing Anterior 1 Manual Muscle Testing Posterior 2 Muscle Endurance (Seconds) 2 Number of Quick Contractions In 10 3 Seconds Comments Pelvic Floor Comments poor control and tendency to use glutes and hold breath to try to contract PT-OP-Q Treatments Start: 02/05/21 15:25 Freq: Status: Active Protocol: Document 03/20/21 07:30 AMB (Rec: 03/20/21 08:13 AMB [id number]) Therapeutic Exercises Supine Exercises roll in roll out Resistance #3 t band Reps/Minutes 3x10 ea 1 Supine Exercise Name Quick flicks and long holds Standing Exercises 2 Standing Exercise Name PF contract with wide stance and stride stance Reps/Minutes 2x10 1 Standing Exercise Name PF contract with squats/lunges Reps/Minutes 10 PT-OP-T Assessment and Plan Start: 02/05/21 15:25 Freq: Status: Active Protocol: Document 03/20/21 07:30 AMB (Rec: 03/20/21 08:13 AMB [id number]) Physical Therapy Assessment Goals Three Impairment Incomplete emptying Short Term Goal (STG) Jessica will be able to completley void her bladder no matter if she has had a bowel movement in the last few hours or not. STG Duration PROGRESS MADE- pt has to press on rectum at times Two Impairment Urinary leaking [facility] Goal (LTG) Jessica will employ pelvic floor contractions so that she can avoid leaking urine no matter how full her rectum is. LTG Duration PARTIALLY MET One Impairment Pelvic floor strength Short Term Goal (STG) Jessica will improve her pelvic floor strength to 3/5. STG Duration 4 weeks [facility] Goal (LTG) Jessica will improve her pelvic floor strength so she can perform a kegel for 10 seconds in standing. LTG Duration MET Assessment Summary Assessment Bending over continues to cause leaking, does continue to have leaking at the end of the day. Overall, Jessica has improved her ability to contract her pelvic floor and while she continues to have symptoms at the end of her day , she feels she has some tools to manage that that she previously did not have. Physical Therapy Plan Discharge Physical Therapy Discharge Reasons Patient Request
== END 2021-03-20 14:39 | disposition home or self-care (01) ==
LOC: PHYS 07:30
PROVIDERS: PCP Internal Medicine; Referring Provider Specialist; Visit Provider Specialist
DX: M62.89 Other specified disorders of muscle (principal)
CPT/HCPCS: 97110; 97112; 97162

== ENCOUNTER → 2021-11-15 17:17 | Outpatient (CLI) | payer MEDICARE, OTHER, SELFPAY ==
[2020-03-05 13:09] VITALS: BMI 20.2
== END ==
PROVIDERS: PCP Internal Medicine; Visit Provider Nurse Practitioner Critical Care Medicine
DX: R30.0 Dysuria (principal)
CPT/HCPCS: 87077; 87086; 87186

== ENCOUNTER → 2021-11-20 18:02 | Outpatient (CLI) | payer MEDICARE, OTHER, SELFPAY ==
[2020-03-05 13:09] VITALS: BMI 20.2
== END ==
PROVIDERS: PCP Internal Medicine; Visit Provider Physician Assistant
DX: N39.0 Urinary tract infection, site not specified (principal)
CPT/HCPCS: 87086

== ENCOUNTER → 2022-01-15 12:43 | Outpatient (CLI) | payer MEDICARE, OTHER, SELFPAY ==
[2020-03-05 13:09] VITALS: BMI 20.2
[2022-01-15 13:18] LABS: Hematocrit 38.8 % (36-46); Mean Corpuscular HGB Conc 33.6 % (30-36); Mean Corpuscular Hemoglobin 30.1 PG (26-34); Mean Corpuscular Volume 89.4 fL (80-100); Platelet Count 323 X10^3/uL (150-400); Red Blood Cell Count 4.33 X10^6/uL (4.0-5.2); Red Cell Distribution Width 13.4 % (11.6-14.8); White Blood Cell Count 5.4 X10^3/uL (4.5-11.0)
[2022-01-15 14:08] LABS: Alanine Aminotransferase 15 IU/L (<35); Albumin 4.7 g/dL (3.5-5.0); Albumin Globulin Ratio 1.5 (1.0-2.8); Alkaline Phosphatase 91 U/L (38-126); Aspartate Aminotransferase 26 IU/L (14-36); BUN Creatinine Ratio 17.6 (6-22); Bilirubin Total 0.6 mg/dL (0.2-1.3); Blood Urea Nitrogen 15 mg/dL (7-17); Calcium 9.6 mg/dL (8.4-10.2); Carbon Dioxide 27 mmol/L (22-32); Chloride 101 mmol/L (98-107); Cholesterol 207 mg/dL (140-199); Estimated Glomerular Filt Rate > 60 mL/min (>60); Globulin 3.2 g/dL (1.7-4.1); Glucose 91 mg/dL (80-110); HDL Cholesterol 104 mg/dL (40-60); HEMOLYSIS < 15 (0-50); LDL Cholesterol Calculated 83 mg/dL (<100); Potassium 4.4 mmol/L (3.4-5.1); Sodium 136 mmol/L (137-145); Total Protein 7.9 g/dL (6.3-8.2); Triglycerides 102 mg/dL (35-150)
[2022-01-15 17:07] LABS: Vitamin D 25 Hydroxy (D3) 52.8 ng/mL (30.0-100.0)
[2022-01-16 07:09] LABS: Varicella IgG Antibody 346 index (Immune >165)
== END ==
PROVIDERS: PCP Internal Medicine; Referring Provider Internal Medicine; Visit Provider Internal Medicine
DX: E78.2 Mixed hyperlipidemia (principal); Z20.820 Contact with and (suspected) exposure to varicella; I10 Essential (primary) hypertension
CPT/HCPCS: 36415; 80053; 80061; 82306; 84443; 85027; 86787

== ENCOUNTER → 2022-05-14 07:58 | Outpatient (CLI) | payer MEDICARE, OTHER, SELFPAY ==
[2020-03-05 13:09] VITALS: BMI 20.2
--- NOTE | 2022-05-14 08:03 | DI.MG.S_ITS ---
BILATERAL DIGITAL SCREENING MAMMOGRAM 3D/2D WITH CAD: 05/14/2022 CLINICAL: Routine screening. Family history of breast cancer. Comparison is made to exams dated: 05/04/2019 mammogram, 09/12/2016 mammogram, and 06/16/2014 mammogram - [facility]. Both breasts are heterogeneously dense, which may obscure small masses (category c / 51-75% glandular tissue). Current study was also evaluated with a Computer Aided Detection (CAD) system. No significant masses, calcifications, or other findings are seen in either breast. There has been no significant interval change. IMPRESSION: NEGATIVE There is no mammographic evidence of malignancy. A 1 year screening mammogram is recommended. Based on the Tyrer Cuzick model (a risk assessment model) the patient's lifetime risk is 3.4% and her 10 year risk is 0.0%. According to the ACR, ACS, and NCCN guidelines, an annual breast MRI exam along with mammogram is recommended if the patient's lifetime risk is 20% or greater. This exam was interpreted at Station ID: [id number]. NOTE: For mammograms, a report in lay terms will be sent to the patient. Approximately 15% of breast malignancies will not be visualized mammographically. In the management of a palpable breast mass, a negative mammogram must not discourage biopsy of a clinically suspicious lesion. Electronically Signed By: Scott Wallace M.D., jr/vito:05/14/2022 13:36:15 letter sent: Normal Exam ACR BI-RADS Category 1: Negative [id number]
== END ==
PROVIDERS: PCP Internal Medicine; Referring Provider Internal Medicine; Visit Provider Internal Medicine
DX: Z12.31 Encounter for screening mammogram for malignant neoplasm of breast (principal)
CPT/HCPCS: 77063; 77067

== ENCOUNTER → 2022-11-03 09:43 | Outpatient (CLI) | payer MEDICARE, OTHER, SELFPAY ==
[2020-03-05 13:09] VITALS: BMI 20.2
== END ==
PROVIDERS: PCP Internal Medicine; Visit Provider Nurse Practitioner Family
DX: R30.0 Dysuria (principal)
CPT/HCPCS: 87077; 87086; 87186

== ENCOUNTER → 2022-11-18 09:11 | Outpatient (CLI) | payer MEDICARE, OTHER, SELFPAY ==
[2020-03-05 13:09] VITALS: BMI 20.2
== END ==
PROVIDERS: PCP Internal Medicine; Visit Provider Physician Assistant
DX: R30.0 Dysuria (principal)
CPT/HCPCS: 87086

== ENCOUNTER 2022-11-18 18:37 | Inpatient (IN) | payer MEDICARE, OTHER, SELFPAY ==
[2020-03-05 13:09] VITALS: BMI 20.2
[2022-11-18] VITALS (18 sets, daily range): BP systolic 103–170; BP diastolic 48–92; PULSE 92–118; RESP 16–25; TEMP 36.9–38.3; O2SAT 92–96; BMI 20.5; BMI 21.9
--- NOTE | 2022-11-18 18:49 | DI.RAD.S_ITS ---
PROCEDURE: XR CHEST 1V INDICATIONS: suspected sepsis TECHNIQUE: One view of the chest was acquired. COMPARISON: [facility], , CHEST 2 VIEW, 05/29/2013, 2:27. FINDINGS: Surgical changes and devices: None. Lungs and pleura: Lungs are clear. No pleural effusions or pneumothorax. Mediastinum: Mediastinal contours appear normal. Heart size is normal. Bones and chest wall: No suspicious bony lesions. Overlying soft tissues appear unremarkable. IMPRESSION: No acute cardiopulmonary abnormalities or focal airspace disease. Dictated by: Darryl Grubbs M.D. on 11/18/2022 at 19:38 Approved by: Darryl Grubbs M.D. on 11/18/2022 at 19:38
--- NOTE | 2022-11-18 19:05 | ED_ITS ---
HPI - General Adult General Chief complaint: Fever Stated complaint: Ear infection Time Seen by Provider: 11/18/22 18:57 Source: patient Mode of arrival: Ambulatory Limitations: no limitations History of Present Illness HPI narrative: Patient is a 77-year-old female. States for the past couple days she is had urinary frequency and urgency. Also some hesitancy as well. She went to the walk-in clinic earlier today. Was diagnosed with a urinary tract infection. A urine culture was ordered. She was given a dose of Macrobid based on prior urine culture. She states that she is taken 1 dose this medication. She tolerated it well. But as the day went on she started to feel worse. Had a sudden onset of chills. Is still having urinary symptoms. Is generally does not feel very well. No chest pain or shortness of breath or lightheadedness. No skin rashes. No fevers. Does have some lower abdominal discomfort. Related Data Home Medications Medication Instructions Recorded Confirmed cholecalciferol (vitamin D3) 125 125 mcg PO DAILY 01/15/22 11/18/22 mcg (5,000 unit) capsule cyanocobalamin (vitamin B-12) 1,000 mcg PO DAILY 01/15/22 11/18/22 1,000 mcg capsule docusate sodium 100 mg tablet 100 mg PO DAILY PRN 01/15/22 11/18/22 (Stool Softener) lactobacillus comb no.10 20 20,000 mmu cells PO DAILY 01/15/22 11/18/22 billion cell capsule (Probiotic) Previous Rx's Medication Instructions Recorded amlodipine 5 mg tablet 5 mg PO DAILY #90 tabs 01/27/22 atorvastatin 10 mg tablet 10 mg PO DAILY #90 tabs 01/27/22 doxycycline hyclate 20 mg tablet 20 mg PO DAILY #90 tabs 01/27/22 benzonatate 100 mg capsule 100 mg PO BID-TID PRN cough #30 08/12/22 caps zolpidem 5 mg tablet 5 mg PO BEDTIME PRN sleep #15 tabs 09/19/22 ondansetron 4 mg disintegrating 4 mg PO Q8H PRN nausea and 11/04/22 tablet vomiting #7 tabs lisinopril 20 mg tablet 20 mg PO DAILY #90 tabs 11/10/22 nitrofurantoin 100 mg PO Q12H 5 days #10 caps 11/18/22 monohydrate/macrocrystals 100 mg capsule (Macrobid) ondansetron 4 mg disintegrating 4 mg PO Q8H PRN nausea and 11/18/22 tablet vomiting #10 tabs Allergies Allergy/AdvReac Type Severity Reaction Status Date / Time Sulfa (Sulfonamide Allergy Mild Verified 11/18/22 18:46 Antibiotics) Review of Systems Review of Systems ROS Unobtainable: All systems reviewed & are unremarkable except as noted in HPI and below Patient History Medical History Anxiety Chronic back pain Constipation Cystitis Do not resuscitate Dysphonia Essential hypertension Generalized anxiety disorder Glomerulonephritis Insomnia Measles Mixed hyperlipidemia Osteopenia Pneumonia Retinal detachment (~2021) Rosacea (~1990) Stress reaction Surgical History Anesthesia History of arthroscopy History of hysterectomy (1999) History of laparotomy History of surgery (1999) Hx of appendectomy Hx of bilateral cataract extraction (2014) Family History Father Cancer Mother History of heart disease Hypertension Stroke Brother Substance use Grandfather Diabetes mellitus Social History household members: spouse Smoking Status: Never smoker alcohol intake: current Smoking Status: Never smoker alcohol intake frequency: 0-2 drinks per day Substance Use Type: does not use Exam Initial Vital Signs Initial Vital Signs: Vital Signs Temperature 100.3 F H 11/18/22 18:40 Pulse Rate 118 H 11/18/22 18:40 Respiratory Rate 18 11/18/22 18:40 Blood Pressure 170/92 H 11/18/22 18:40 Pulse Oximetry 96 11/18/22 18:40 Oxygen Delivery Method Room Air 11/18/22 18:40 Const General: cooperative, comfortable and No ill appearing HENMT Head: normal to inspection Resp Effort & Inspection: normal respiratory effort Auscultation: clear to auscultation bilaterally Cardio Rate: tachycardic Rhythm: regular rhythm GI Inspection: normal to inspection and non-distended Palpation: tender (Suprapubic region) Back/Spine/Pelvis Back: No CVA tenderness Skin General: no rashes or lesions noted Neuro General: patient alert, patient awake and moves all extremities Extrem General: normal to inspection and capillary refill normal Psych Appearance: grossly normal Scores GCS Felix coma scale eye opening: Spontaneous [place] coma scale verbal response: Orientated Felix coma scale motor response: Obey commands Felix coma scale total score: 15 Course Orders Ordered: ED Orders 11/18/22 18:49 XR chest 1V Stat EKG-12 Lead Stat RT Consult Eval and Treat NOW 11/18/22 18:53 Complete Blood Count AUTO DIFF Stat Comprehensive Metabolic Panel Stat Lactate (Lactic Acid) Stat Lipase Stat Procalcitonin Stat 11/18/22 19:18 Blood Culture Stat COVID19 -Nasal RAPID Stat Ondansetron HCl (Ondansetron 4 Mg Odt) 4 mg SL NOW PRN PRN Reason: Nausea And Vomiting Ondansetron HCl (Ondansetron 4 Mg/2 Ml Inj) 4 mg IV NOW PRN PRN Reason: Nausea And Vomiting Discontinued Medications Sodium Chloride (Normal Saline 0.9%) 1,000 mls @ 1,000 mls/hr IV BOLUS ONE Stop: 11/18/22 19:48 Last Admin: 11/18/22 19:51 Dose: 1,000 mls/hr Documented By: KALE Ceftriaxone Sodium 1,000 mg/ (Sodium Chloride) 100 mls @ 200 mls/hr IV NOW ONE Stop: 11/18/22 19:06 Last Infusion: 11/18/22 20:29 Dose: 0 mls/hr Documented By: Admin: 11/18/22 19:53 Dose: 200 mls/hr Documented By: KALE Vital Signs Vital signs: Vital Signs - 8 hr 11/18/22 18:40 11/18/22 18:55 11/18/22 18:55 Temperature 100.3 F H Pulse Rate 118 H 110 H Respiratory Rate 18 Blood Pressure 170/92 H 147/72 H Pulse Oximetry 96 95 Oxygen Delivery Method Room Air 11/18/22 19:00 11/18/22 19:00 11/18/22 19:47 Temperature 99.5 F Pulse Rate 116 H 105 H Respiratory Rate 16 Blood Pressure 154/79 H 158/72 H Pulse Oximetry 95 Oxygen Delivery Method 11/18/22 19:48 11/18/22 19:48 Temperature Pulse Rate 103 H Respiratory Rate 22 Blood Pressure 158/72 H Pulse Oximetry 95 Oxygen Delivery Method Medical Decision Making Medical Records Medical records reviewed: Yes I reviewed the patient's medical records. Lab Data Lab results reviewed: Yes I reviewed the patient's lab results. 11/18/22 18:53 11/18/22 18:53 Labs: Lab Results 11/18/22 11/18/22 11/18/22 Range/Units 18:53 18:53 18:53 WBC 13.4 H (4.5-11.0) X10^3/uL RBC 3.89 L (4.0-5.2) X10^6/uL Hgb 12.3 (12.0-16.0) g/dL Hct 35.3 L (36-46) % MCV 90.6 (80-100) fL MCH 31.7 (26-34) PG MCHC 35.0 (30-36) % RDW 12.8 (11.6-14.8) % Plt Count 304 (150-400) X10^3/uL Neut % (Auto) 94.5 H (50-75) % Lymph % (Auto) 3.2 L (25-40) % [place] % (Auto) 1.4 L (3-14) % Eos % (Auto) 0.2 L (2-4) % Baso % (Auto) 0.7 (0-2) % Neut # (Auto) 16199 H (7683-9540) /uL Lymph # (Auto) 400 L (8451-3866) /uL [place] # (Auto) 200 (0-900) /uL Eos # (Auto) 0 (0-450) /uL Baso # (Auto) 100 (0-100) /uL Sodium 128 L (137-145) mmol/L Potassium 3.8 (3.4-5.1) mmol/L Chloride 95 L (98-107) mmol/L Carbon Dioxide 23 (22-32) mmol/L BUN 12 (7-17) mg/dL Creatinine 0.78 (0.52-1.04) mg/dL Estimated GFR > 60 (>60) mL/min BUN/Creatinine Ratio 15.4 (6-22) Glucose 103 (80-110) mg/dL Lactate 1.1 (0.7-2.1) mmol/L Calcium 8.9 (8.4-10.2) mg/dL Total Bilirubin 1.1 (0.2-1.3) mg/dL AST 46 H (14-36) IU/L ALT 27 (<35) IU/L Alkaline Phosphatase 115 (38-126) U/L Total Protein 7.9 (6.3-8.2) g/dL Albumin 4.3 (3.5-5.0) g/dL Globulin 3.6 (1.7-4.1) g/dL Albumin/Globulin Ratio 1.2 (1.0-2.8) Lipase 88 (23-300) U/L Procalcitonin 0.34 (<0.5) ng/mL SARS-CoV-2 (PCR) (Negative) 11/18/22 Range/Units 19:18 WBC (4.5-11.0) X10^3/uL RBC (4.0-5.2) X10^6/uL Hgb (12.0-16.0) g/dL Hct (36-46) % MCV (80-100) fL MCH (26-34) PG MCHC (30-36) % RDW (11.6-14.8) % Plt Count (150-400) X10^3/uL Neut % (Auto) (50-75) % Lymph % (Auto) (25-40) % [place] % (Auto) (3-14) % Eos % (Auto) (2-4) % Baso % (Auto) (0-2) % Neut # (Auto) (2924-2338) /uL Lymph # (Auto) (0992-2806) /uL [place] # (Auto) (0-900) /uL Eos # (Auto) (0-450) /uL Baso # (Auto) (0-100) /uL Sodium (137-145) mmol/L Potassium (3.4-5.1) mmol/L Chloride (98-107) mmol/L Carbon Dioxide (22-32) mmol/L BUN (7-17) mg/dL Creatinine (0.52-1.04) mg/dL Estimated GFR (>60) mL/min BUN/Creatinine Ratio (6-22) Glucose (80-110) mg/dL Lactate (0.7-2.1) mmol/L Calcium (8.4-10.2) mg/dL Total Bilirubin (0.2-1.3) mg/dL AST (14-36) IU/L ALT (<35) IU/L Alkaline Phosphatase (38-126) U/L Total Protein (6.3-8.2) g/dL Albumin (3.5-5.0) g/dL Globulin (1.7-4.1) g/dL Albumin/Globulin Ratio (1.0-2.8) Lipase (23-300) U/L Procalcitonin (<0.5) ng/mL SARS-CoV-2 (PCR) Negative (Negative) Imaging Data Chest x-ray: Radiologist's Impression: PROCEDURE:? XR CHEST 1V ? INDICATIONS:? suspected sepsis ? TECHNIQUE:? One view of the chest was acquired.? ? COMPARISON:? [facility], CHEST 2 VIEW, 05/29/2013, 2:27. ? FINDINGS:? ? Surgical changes and devices:? None.? ? Lungs and pleura:? Lungs are clear.? No pleural effusions or pneumothorax.? ? Mediastinum:? Mediastinal contours appear normal.? Heart size is normal.? ? Bones and chest wall:? No suspicious bony lesions.? Overlying soft tissues appear unremarkable.? ? IMPRESSION:? No acute cardiopulmonary abnormalities or focal airspace disease. ECG Data Attestation: I personally reviewed and interpreted this ECG as follows: Interpretation: Sinus rhythm Ventricular rate 99 Normal axis Normal QRS Nonspecific ST T wave changes MDM Narrative Medical decision making narrative: Patient has a known urinary tract infection. A urinalysis and urine culture were drawn earlier today. She would a sudden onset of chills. Arrived febrile and tachycardic and tachypneic. Has a leukocytosis. Is not hypotensive. Has not altered. Cultures were obtained. Antibiotics started. Patient was given gentle hydration. No indication for 30 cc/kilogram of fluid because of her normal lactate, normal mentation and lack of hypotension. I do have low suspicion for pyelo as she has no lower back pain. Is not vomiting. Given her systemic response to her infection patient does require admission to the hospital. I did discuss this with the patient. She expressed understanding and agreement. Discussed the need for admission with Dr. Chaudhary who is the hospitalist who will admit for further evaluation and treatment. Discharge Plan Departure Patient Disposition: Admitted As Inpatient Clinical Impression: Urinary tract infection Admit Date/Time: 11/18/22 20:45 Admit Provider: Peter Chaudhary
[2022-11-18 19:22] LABS: Add Manual Diff / Slide Review NO; Basophils Absolute Auto 100 /uL (0-100); Basophils Percent Auto 0.7 % (0-2); Eosinophils Absolute Auto 0 /uL (0-450); Eosinophils Percent Auto 0.2 % (2-4); Hematocrit 35.3 % (36-46); Hemoglobin 12.3 g/dL (12.0-16.0); Lymphocytes Absolute Auto 400 /uL (1100-4500); Lymphocytes Percent Auto 3.2 % (25-40); Mean Corpuscular Hemoglobin 31.7 PG (26-34); Mean Corpuscular Volume 90.6 fL (80-100); Monocytes Absolute Auto 200 /uL (0-900); Monocytes Percent Auto 1.4 % (3-14); Neutrophils Absolute Auto 12700 /uL (1500-7000); Neutrophils Percent Auto 94.5 % (50-75); Platelet Count 304 X10^3/uL (150-400); Red Blood Cell Count 3.89 X10^6/uL (4.0-5.2); Red Cell Distribution Width 12.8 % (11.6-14.8); White Blood Cell Count 13.4 X10^3/uL (4.5-11.0)
[2022-11-18 19:35] LABS: Lactate (Lactic Acid) 1.1 mmol/L (0.7-2.1)
[2022-11-18 19:36] LABS: Alanine Aminotransferase 27 IU/L (<35); Albumin 4.3 g/dL (3.5-5.0); Albumin Globulin Ratio 1.2 (1.0-2.8); Alkaline Phosphatase 115 U/L (38-126); Aspartate Aminotransferase 46 IU/L (14-36); BUN Creatinine Ratio 15.4 (6-22); Bilirubin Total 1.1 mg/dL (0.2-1.3); Blood Urea Nitrogen 12 mg/dL (7-17); Calcium 8.9 mg/dL (8.4-10.2); Carbon Dioxide 23 mmol/L (22-32); Chloride 95 mmol/L (98-107); Estimated Glomerular Filt Rate > 60 mL/min (>60); Globulin 3.6 g/dL (1.7-4.1); Glucose 103 mg/dL (80-110); HEMOLYSIS < 15 (0-50); Lipase 88 U/L (23-300); Potassium 3.8 mmol/L (3.4-5.1); Sodium 128 mmol/L (137-145); Total Protein 7.9 g/dL (6.3-8.2)
[2022-11-18 19:51] LABS: Procalcitonin 0.34 ng/mL (<0.5)
[2022-11-18] MEDS: SODIUM CHLORIDE 0.9% 1,000 ML 1000 ML IV (19:51)
[2022-11-18] MEDS: cefTRIAXone 1,000 MG in SODIUM CHLORIDE 0.9% 100 ML 200 MG IV (19:53)
[2022-11-18 20:13] LABS: COVID19 -Nasal RAPID Negative (Negative)
--- NOTE | 2022-11-18 20:40 | PM.HP.1 ---
History of Present Illness History of Present Illness Date Patient Seen: 11/18/22 Time Patient Seen: 10:45 Chief complaint: Ear infection Narrative: Ms. Gallagher is a 77W with PMH HTN who presents to the hospital with dysuria. She has had symptoms of painful urination, urinary frequency and hesitancy that have been worsening for approximately the last four days. She also had some myalgias. She went to urgent care clinic and had urinalysis consistent with a UTI. She was given a prescription for macrobid today and took one dose. However, she felt worse after this with chills, rigors and malaise. No fevers. She did have some abdominal pain, no vomiting or diarrhea. Because of this she presented back to the hospital. Urgent care notes were reviewed. She has noted she has a mild nonproductive cough. In the ED workup was done, vitals notable for temp 100.3, heart rate 110s, blood pressure 170s/90s, sats 96% on room air. Labs reviewed by me and notable for WBC 13.4, hgb 12.3, plts 304. Na 128, creatinine 0.78. Lactate 1.1. AST/ALT 46/27. Procal 0.34. Chest xray reviewed by me and with no consolidation noted. She was ordered for IV fluids and antibiotics and admitted for further treatment. [facility] Medical History Anxiety Chronic back pain Constipation Cystitis Do not resuscitate Dysphonia Essential hypertension Generalized anxiety disorder Glomerulonephritis Insomnia Measles Mixed hyperlipidemia Osteopenia Pneumonia Retinal detachment (~2021) Rosacea (~1990) Stress reaction Surgical History Anesthesia History of arthroscopy History of hysterectomy (1999) History of laparotomy History of surgery (1999) Hx of appendectomy Hx of bilateral cataract extraction (2014) Family History Father Cancer Mother History of heart disease Hypertension Stroke Brother Substance use Grandfather Diabetes mellitus Social History household members: none Smoking Status: Never smoker alcohol intake: current Meds Home Medications and Allergies Home Medications Medication Instructions Recorded Confirmed Type cholecalciferol (vitamin D3) 125 125 mcg PO DAILY 01/15/22 11/18/22 History mcg (5,000 unit) capsule cyanocobalamin (vitamin B-12) 1,000 mcg PO DAILY 01/15/22 11/18/22 History 1,000 mcg capsule docusate sodium 100 mg tablet 100 mg PO DAILY PRN 01/15/22 11/18/22 History (Stool Softener) lactobacillus comb no.10 20 20,000 mmu cells PO DAILY 01/15/22 11/18/22 History billion cell capsule (Probiotic) amlodipine 5 mg tablet 5 mg PO DAILY #90 tabs 01/27/22 11/18/22 Rx atorvastatin 10 mg tablet 10 mg PO DAILY #90 tabs 01/27/22 11/18/22 Rx doxycycline hyclate 20 mg tablet 20 mg PO DAILY #90 tabs 01/27/22 11/18/22 Rx benzonatate 100 mg capsule 100 mg PO BID-TID PRN cough #30 08/12/22 11/18/22 Rx caps zolpidem 5 mg tablet 5 mg PO BEDTIME PRN sleep #15 tabs 09/19/22 11/18/22 Rx ondansetron 4 mg disintegrating 4 mg PO Q8H PRN nausea and 11/04/22 11/18/22 Rx tablet vomiting #7 tabs lisinopril 20 mg tablet 20 mg PO DAILY #90 tabs 11/10/22 11/18/22 Rx nitrofurantoin 100 mg PO Q12H 5 days #10 caps 11/18/22 11/18/22 Rx monohydrate/macrocrystals 100 mg capsule (Macrobid) ondansetron 4 mg disintegrating 4 mg PO Q8H PRN nausea and 11/18/22 11/18/22 Rx tablet vomiting #10 tabs Allergies Allergy/AdvReac Type Severity Reaction Status Date / Time Sulfa (Sulfonamide Allergy Mild Verified 11/18/22 18:46 Antibiotics) Review of Systems Review of Systems Narrative: 14 systems reviewed and negative aside from what is noted in HPI Exam Vital Signs (past 8 hours): - 11/18/22 18:40 11/18/22 18:55 11/18/22 18:55 Temperature 100.3 F H Pulse Rate 118 H 110 H Respiratory Rate 18 Blood Pressure 170/92 H 147/72 H Pulse Oximetry 96 95 Oxygen Delivery Method Room Air 11/18/22 19:00 11/18/22 19:00 11/18/22 19:47 Temperature 99.5 F Pulse Rate 116 H 105 H Respiratory Rate 16 Blood Pressure 154/79 H 158/72 H Pulse Oximetry 95 Oxygen Delivery Method 11/18/22 19:48 11/18/22 19:48 Temperature Pulse Rate 103 H Respiratory Rate 22 Blood Pressure 158/72 H Pulse Oximetry 95 Oxygen Delivery Method Oxygen Delivery Method Room Air Narrative Exam Narrative: GEN: no acute distress HEENT: moist mucous membranes, PERRL NECK: trachea midline, no JVD PULM: clear bilaterally, no wheezes, rhonchi, rales CV: tachycardic, no murmurs ABD: soft, nontender, nondistended, no organomegaly EXT: warm and well perfused with no edema NEURO: awake, alert, oriented, no focal deficits Objective Labs 11/18/22 18:53 11/18/22 18:53 Labs: Laboratory Results - last 24 hr 11/18/22 11/18/22 11/18/22 18:53 18:53 18:53 WBC 13.4 H RBC 3.89 L Hgb 12.3 Hct 35.3 L MCV 90.6 MCH 31.7 MCHC 35.0 RDW 12.8 Plt Count 304 Neut % (Auto) 94.5 H Lymph % (Auto) 3.2 L [place] % (Auto) 1.4 L Eos % (Auto) 0.2 L Baso % (Auto) 0.7 Neut # (Auto) 39616 H Lymph # (Auto) 400 L [place] # (Auto) 200 Eos # (Auto) 0 Baso # (Auto) 100 Sodium 128 L Potassium 3.8 Chloride 95 L Carbon Dioxide 23 BUN 12 Creatinine 0.78 Estimated GFR > 60 BUN/Creatinine Ratio 15.4 Glucose 103 Lactate 1.1 Calcium 8.9 Total Bilirubin 1.1 AST 46 H ALT 27 Alkaline Phosphatase 115 Total Protein 7.9 Albumin 4.3 Globulin 3.6 Albumin/Globulin Ratio 1.2 Lipase 88 Procalcitonin 0.34 SARS-CoV-2 (PCR) 11/18/22 19:18 WBC RBC Hgb Hct MCV MCH MCHC RDW Plt Count Neut % (Auto) Lymph % (Auto) [place] % (Auto) Eos % (Auto) Baso % (Auto) Neut # (Auto) Lymph # (Auto) [place] # (Auto) Eos # (Auto) Baso # (Auto) Sodium Potassium Chloride Carbon Dioxide BUN Creatinine Estimated GFR BUN/Creatinine Ratio Glucose Lactate Calcium Total Bilirubin AST ALT Alkaline Phosphatase Total Protein Albumin Globulin Albumin/Globulin Ratio Lipase Procalcitonin SARS-CoV-2 (PCR) Negative Assessment & Plan Assessment & Plan narrative: 1. UTI with SIRS -UA with nitrates, leuk esterase -urine culture, and blood culture pending -with IV fluids heart rate improved -continue ceftriaxone -follow up cultures -check for flu as she has some URI symptoms, chest xray negative for pneumonia 2. Hyponatremia, hyponatremic -did recieve IV fluids in the ED -suspect sodium will improve with fluids -recheck sodium with AM labs draw 3. Hypertension -hold blood pressure medications for now 4. Hyperlipidemia -continue statin I have discussed the plan and obtained history from the patient. I have discussed plan for care with the ED physician and bedside nurse. I have reviewedl labs, previous medical records, and chest xray CODE: DNR/DNI Proxy: Chip Gallagher, spouse [facility] Meds 'Current medications' to include all prescriptions, [id number] products, herbals, cannabis/cannabidiol products, and vitamin/mineral/dietary (nutritional) supplements. I have utilized all available resources to obtain, update, or review the patient?s current medications. [If Yes, STOP here]: Yes
[2022-11-18] MEDS: ACETAMINOPHEN 325 MG TABLET 650 MG PO (22:28)
[2022-11-18] MEDS: HEPARIN 5,000 UNIT/ML VIAL 5000 UNIT SUBCUT (23:10)
[2022-11-18] MEDS: LACTATED RINGERS 1,000 ML 1000 ML IV (23:30)
[2022-11-18 23:51] LABS: Influenza A - CEPHEID Flu A NEGATIVE (NEGATIVE); Influenza B - CEPHEID Flu B NEGATIVE (NEGATIVE); Respiratory Syncytial Virus Negative (Negative)
[2022-11-18 23:52] LABS: COVID-19 CEPHEID 4-PLEX PCR Negative (Negative)
[2022-11-19 01:00] VITALS: BP 110/55; PULSE 88; RESP 18; TEMP 36.3; O2SAT 97
[2022-11-19 06:31] LABS: Add Manual Diff / Slide Review NO; Basophils Absolute Auto 0 /uL (0-100); Basophils Percent Auto 0.1 % (0-2); Eosinophils Absolute Auto 0 /uL (0-450); Eosinophils Percent Auto 0.3 % (2-4); Hematocrit 29.1 % (36-46); Hemoglobin 10.1 g/dL (12.0-16.0); Lymphocytes Absolute Auto 1000 /uL (1100-4500); Lymphocytes Percent Auto 6.2 % (25-40); Mean Corpuscular HGB Conc 34.7 % (30-36); Mean Corpuscular Hemoglobin 31.6 PG (26-34); Mean Corpuscular Volume 91.2 fL (80-100); Monocytes Absolute Auto 500 /uL (0-900); Monocytes Percent Auto 3.2 % (3-14); Neutrophils Absolute Auto 13900 /uL (1500-7000); Neutrophils Percent Auto 90.2 % (50-75); Platelet Count 252 X10^3/uL (150-400); Red Blood Cell Count 3.19 X10^6/uL (4.0-5.2); Red Cell Distribution Width 13.1 % (11.6-14.8); White Blood Cell Count 15.4 X10^3/uL (4.5-11.0)
[2022-11-19 06:41] LABS: BUN Creatinine Ratio 13.2 (6-22); Blood Urea Nitrogen 10 mg/dL (7-17); Calcium 8.4 mg/dL (8.4-10.2); Carbon Dioxide 24 mmol/L (22-32); Chloride 103 mmol/L (98-107); Estimated Glomerular Filt Rate > 60 mL/min (>60); Glucose 101 mg/dL (80-110); HEMOLYSIS < 15 (0-50); Potassium 4.1 mmol/L (3.4-5.1); Sodium 131 mmol/L (137-145)
--- NOTE | 2022-11-19 07:09 | DI.US.S_ITS ---
PROCEDURE: US RENAL COMPLETE INDICATIONS: UTI not improving, r/o hydro or stone TECHNIQUE: Real-time scanning was performed of the kidneys and bladder, with image documentation. COMPARISON: None. FINDINGS: Kidneys: Kidneys are normal in size. Right kidney measures 8.3 cm long; left kidney measures 10.4 cm long. Right renal cortical thickness is 1.0 cm; left renal cortical thickness is 1.3 cm. Renal cortical echotexture is normal. No hydronephrosis or nephrolithiasis. No suspicious solid mass lesions. 1.2 x 1.3 x 1.1 cm simple cyst is seen in midpole right kidney. Bladder: Pre-void bladder volume is 516 mL. Post-void residual is 381 mL. Pre-void images demonstrate no intraluminal masses or stones. On pre-void images, right ureteral jet is noted with color Doppler interrogation. (Of note, ureteral jets may not be detectable in up to 25% of cases due to insufficient differences in specific gravity between ureteral and bladder urine). Miscellaneous: No free pelvic fluid. IMPRESSION: 1. Simple cyst in right kidney as above. No solid appearing renal lesion. No hydronephrosis. 2. No gross bladder wall abnormality. Moderate to large postvoid residual as above. Dictated by: Yahir Parr M.D. on 11/19/2022 at 11:52 Approved by: Yahir Parr M.D. on 11/19/2022 at 11:53
[2022-11-19] MEDS: HEPARIN 5,000 UNIT/ML VIAL 5000 UNIT SUBCUT ×2 (08:50→21:34)
[2022-11-19] MEDS: ACETAMINOPHEN 325 MG TABLET 650 MG PO ×3 (08:50→21:34)
[2022-11-19 12:00] VITALS: BP 134/68; PULSE 75; RESP 16; TEMP 37.2; O2SAT 96
--- NOTE | 2022-11-19 14:53 | PM.PN.1 ---
Subjective Subjective Interval history: Patient continues to have burning with urination and suprapubic pain today. Nausea is improved but still present. Tmax 100.9 today, WBC slightly increased this AM. Exam Vital Signs (past 8 hours): Oxygen Delivery Method Room Air Oxygen Flow Rate 0 Narrative Exam Narrative: GEN: no acute distress HEENT: moist mucous membranes, PERRL NECK: trachea midline, no JVD PULM: clear bilaterally, no wheezes, rhonchi, rales CV: tachycardic, no murmurs ABD: soft, suprapubic tenderness, no CVA tenderness, no distension. EXT: warm and well perfused with no edema NEURO: awake, alert, oriented, no focal deficits Objective Labs 11/19/22 05:44 11/19/22 05:44 Labs: Laboratory Results - last 24 hr 11/18/22 11/18/22 11/18/22 18:53 18:53 18:53 WBC 13.4 H RBC 3.89 L Hgb 12.3 Hct 35.3 L MCV 90.6 MCH 31.7 MCHC 35.0 RDW 12.8 Plt Count 304 Neut % (Auto) 94.5 H Lymph % (Auto) 3.2 L [place] % (Auto) 1.4 L Eos % (Auto) 0.2 L Baso % (Auto) 0.7 Neut # (Auto) 60410 H Lymph # (Auto) 400 L [place] # (Auto) 200 Eos # (Auto) 0 Baso # (Auto) 100 Sodium 128 L Potassium 3.8 Chloride 95 L Carbon Dioxide 23 BUN 12 Creatinine 0.78 Estimated GFR > 60 BUN/Creatinine Ratio 15.4 Glucose 103 Lactate 1.1 Calcium 8.9 Total Bilirubin 1.1 AST 46 H ALT 27 Alkaline Phosphatase 115 Total Protein 7.9 Albumin 4.3 Globulin 3.6 Albumin/Globulin Ratio 1.2 Lipase 88 Procalcitonin 0.34 SARS-CoV-2 (PCR) Influenza A (RT-PCR) Influenza B (RT-PCR) RSV (PCR) 11/18/22 11/18/22 11/19/22 19:18 22:40 05:44 WBC 15.4 H RBC 3.19 L Hgb 10.1 L Hct 29.1 L MCV 91.2 MCH 31.6 MCHC 34.7 RDW 13.1 Plt Count 252 Neut % (Auto) 90.2 H Lymph % (Auto) 6.2 L [place] % (Auto) 3.2 Eos % (Auto) 0.3 L Baso % (Auto) 0.1 Neut # (Auto) 51975 H Lymph # (Auto) 1000 L [place] # (Auto) 500 Eos # (Auto) 0 Baso # (Auto) 0 Sodium Potassium Chloride Carbon Dioxide BUN Creatinine Estimated GFR BUN/Creatinine Ratio Glucose Lactate Calcium Total Bilirubin AST ALT Alkaline Phosphatase Total Protein Albumin Globulin Albumin/Globulin Ratio Lipase Procalcitonin SARS-CoV-2 (PCR) Negative Negative Influenza A (RT-PCR) Flu a negative Influenza B (RT-PCR) Flu b negative RSV (PCR) Negative 11/19/22 05:44 WBC RBC Hgb Hct MCV MCH MCHC RDW Plt Count Neut % (Auto) Lymph % (Auto) [place] % (Auto) Eos % (Auto) Baso % (Auto) Neut # (Auto) Lymph # (Auto) [place] # (Auto) Eos # (Auto) Baso # (Auto) Sodium 131 L Potassium 4.1 Chloride 103 Carbon Dioxide 24 BUN 10 Creatinine 0.76 Estimated GFR > 60 BUN/Creatinine Ratio 13.2 Glucose 101 Lactate Calcium 8.4 Total Bilirubin AST ALT Alkaline Phosphatase Total Protein Albumin Globulin Albumin/Globulin Ratio Lipase Procalcitonin SARS-CoV-2 (PCR) Influenza A (RT-PCR) Influenza B (RT-PCR) RSV (PCR) [facility] Medical History Anxiety Chronic back pain Constipation Cystitis Do not resuscitate Dysphonia Essential hypertension Generalized anxiety disorder Glomerulonephritis Insomnia Measles Mixed hyperlipidemia Osteopenia Pneumonia Retinal detachment (~2021) Rosacea (~1990) Stress reaction Surgical History Anesthesia History of arthroscopy History of hysterectomy (1999) History of laparotomy History of surgery (1999) Hx of appendectomy Hx of bilateral cataract extraction (2014) Family History Father Cancer Mother History of heart disease Hypertension Stroke Brother Substance use Grandfather Diabetes mellitus Social History household members: none Smoking Status: Never smoker alcohol intake: current Assessment & Plan Assessment & Plan narrative: 1. Pyelonephrisis or gram negative bacteremia -UA with nitrates, leuk esterase, given degree of illness suspect pyelonephritis or bacteremia likely. Ultrasound today without evidence of obstruction and no urinary stones. -Febrile today to 100.9. -urine culture with GNB, and blood cultures still in process -with IV fluids heart rate improved -continue ceftriaxone -follow up cultures -Flu negative. 2. Hyponatremia, hypovolemic -did recieve IV fluids in the ED, sodium improved today. -recheck sodium with AM labs draw 3. Hypertension -hold blood pressure medications for now 4. Hyperlipidemia -continue statin I have reviewed labs, previous medical records, and renal ultrasound. CODE: DNR/DNI Proxy: Chip Gallagher, spouse [employer] [facility] Deep Vein Thrombosis/Pulmonary Embolism Present on Admission: No
--- NOTE | 2022-11-19 17:13 | CM.IDA ---
Initial DCP Assessment Patient is 77 y/o female who presents to due to concern for UTI and feeling ill. Patient was admitted to to treat UTI. Patient's PCP is Dr. Mata, patient has Medicare and [employer] for Life insurance. BOXING AND PRESSING SUPERVISOR enters room to meet with patient. Patient presents as A/Ox4 and endorses independence with ADLs, and drives. Patient endorses she resides alone at home in [place] and her spouse now lives at [facility] in independent living. Patient endorses that spouse has hx of PTSD and Mild Cognitive Impairments and she does not feel safe living with him any more. Patient endorses that PCP is very aware and supportive of situation, as well as patient's neighbors. Patient endorses she has good support from family but they do not live locally. Patient endorses if she needed anything she could rely on neighbors and she states her neighbor offered to pick patient up upon d/c. Patient denies any DCP needs at this time. Patient endorses plans to f/u with Dr. Mata for PCP appt next week after d/c. BOXING AND PRESSING SUPERVISOR encourages patient to f/u with PCP regarding any questions she may have. Plan: Patient to d/c to home upon medical clearance, patient to receive ride from neighbor, patient denies DCP needs at this time. JAMILAH Barnett Discharge Planning/Care Management Document 11/19/22 17:11 LN (Rec: 11/19/22 17:13 LN [id number]) Discharge Planning Assessment Assigned Mixing Technician JAMILAH Tamez Advance Directives? Yes Advance Directives on File Yes History Provided By Patient,Medical Record Has Patient been admitted in last 30 No days? Prior Living Arrangements House Household Members none Type of transporation used prior to Drives own vehicle admit Independent with ADL's Yes Is patient alert and oriented? Yes Comment Patient endorses she feels unsafe alone with and he resides at [facility] now. Discharge Plan Home Transportation Arrangement Neighbor Referrals Initiated None needed Please Provide Date Initial DC 11/19/22 Assessment Was Performed
[2022-11-19] MEDS: ONDANSETRON 4 MG/2 ML INJ IV (20:36)
[2022-11-19] MEDS: cefTRIAXone 1,000 MG in SODIUM CHLORIDE 0.9% 100 ML 200 MG IV (20:40)
[2022-11-19 20:46] VITALS: TEMP 36.4
[2022-11-20] VITALS: BP 106/52; PULSE 63; RESP 16; TEMP 36.3; O2SAT 98
[2022-11-20 06:00] VITALS: BP 151/70; PULSE 65; RESP 17; TEMP 36.6; O2SAT 97
--- NOTE | 2022-11-20 06:51 | PC.NURSE ---
[id number]--pt has had a good night and has slept well; she is up ad renetta and has not had any complaints this shift
[2022-11-20] MEDS: LINEZOLID 600 MG TABLET PO (08:47)
[2022-11-20] MEDS: HEPARIN 5,000 UNIT/ML VIAL 5000 UNIT SUBCUT (08:48)
[2022-11-20] MEDS: ACETAMINOPHEN 325 MG TABLET 650 MG PO (08:48)
[2022-11-20] MEDS: ONDANSETRON 4 MG/2 ML INJ IV (08:50)
[2022-11-20 12:00] VITALS: BP 144/83; PULSE 71; RESP 18; TEMP 36.5; O2SAT 98
[2022-11-20 12:49] LABS: Add Manual Diff / Slide Review NO; Basophils Absolute Auto 0 /uL (0-100); Basophils Percent Auto 0.5 % (0-2); Eosinophils Absolute Auto 200 /uL (0-450); Eosinophils Percent Auto 2.7 % (2-4); Hematocrit 33.4 % (36-46); Hemoglobin 11.4 g/dL (12.0-16.0); Lymphocytes Absolute Auto 1300 /uL (1100-4500); Mean Corpuscular HGB Conc 34.1 % (30-36); Mean Corpuscular Hemoglobin 31.3 PG (26-34); Mean Corpuscular Volume 91.8 fL (80-100); Monocytes Absolute Auto 400 /uL (0-900); Neutrophils Absolute Auto 4200 /uL (1500-7000); Neutrophils Percent Auto 69.8 % (50-75); Platelet Count 281 X10^3/uL (150-400); Red Blood Cell Count 3.63 X10^6/uL (4.0-5.2); Red Cell Distribution Width 13.1 % (11.6-14.8)
[2022-11-20 13:09] LABS: Blood Urea Nitrogen 13 mg/dL (7-17); Calcium 8.9 mg/dL (8.4-10.2); Carbon Dioxide 27 mmol/L (22-32); Chloride 99 mmol/L (98-107); Estimated Glomerular Filt Rate > 60 mL/min (>60); Glucose 137 mg/dL (80-110); HEMOLYSIS 17 (0-50); Potassium 4.1 mmol/L (3.4-5.1); Sodium 133 mmol/L (137-145)
--- NOTE | 2022-11-20 13:23 | PM.DS.1 ---
History of Present Illness History of Present Illness Date Patient Seen: 11/18/22 Time Patient Seen: 10:45 Chief complaint: Ear infection Narrative: Ms. Gallagher is a 77W with PMH HTN who presents to the hospital with dysuria. She has had symptoms of painful urination, urinary frequency and hesitancy that have been worsening for approximately the last four days. She also had some myalgias. She went to urgent care clinic and had urinalysis consistent with a UTI. She was given a prescription for macrobid today and took one dose. However, she felt worse after this with chills, rigors and malaise. No fevers. She did have some abdominal pain, no vomiting or diarrhea. Because of this she presented back to the hospital. Urgent care notes were reviewed. She has noted she has a mild nonproductive cough. In the ED workup was done, vitals notable for temp 100.3, heart rate 110s, blood pressure 170s/90s, sats 96% on room air. Labs reviewed by me and notable for WBC 13.4, hgb 12.3, plts 304. Na 128, creatinine 0.78. Lactate 1.1. AST/ALT 46/27. Procal 0.34. Chest xray reviewed by me and with no consolidation noted. She was ordered for IV fluids and antibiotics and admitted for further treatment. Discharge Providers Provider Date of admission: 11/18/22 20:45 Discharge Date: 11/20/22 Primary care physician: Rex Mata MD Discharge provider: Efra Messer DO Summary Hospital Course Discharge Diagnosis: 1. Pyelonephrisis or gram negative bacteremia -UA with nitrates, leuk esterase, given degree of illness suspect pyelonephritis or bacteremia likely. Renal ultrasound without evidence of obstruction and no urinary stones. -Febrile to 100.9 during admission -blood cultures NG at 24 hours -with IV fluids heart rate improved -received 2 days of ceftriaxone -urine culture grew E. coli resistant to quinolones, bactrim but susceptible to cephalosporins. Patient placed on 7 more days of po cefdinir at discharge. -Flu negative. 2. Hyponatremia, hypovolemic -did recieve IV fluids in the ED, sodium improved today. -recheck sodium with AM labs draw 3. Hypertension -hold blood pressure medications for now -resumed on discharge 4. Hyperlipidemia -continue statin Hospital Course: Admitted for urinary symptoms of suprapubic pain and dysuria and febrile to 100.9F. Found to have pyelonephritis with urine cultures growing E. coli sensitive to cephalosporins. Received 2 days of IV rocephin then discharged on 1 more week of po cefdinir. Time Spent with Patient Time spent: Greater than 30 minutes Exam Vital Signs (past 8 hours): - 11/20/22 06:00 11/20/22 12:00 Temperature 97.9 F 97.7 F Pulse Rate 65 71 Respiratory Rate 17 18 Blood Pressure 151/70 H 144/83 H Pulse Oximetry 97 98 Oxygen Flow Rate 0 0 Oxygen Delivery Method Room Air Oxygen Flow Rate 0 Narrative Exam Narrative: GEN: no acute distress HEENT: moist mucous membranes, PERRL NECK: trachea midline, no JVD PULM: clear bilaterally, no wheezes, rhonchi, rales CV: tachycardic, no murmurs ABD: soft, suprapubic tenderness, no CVA tenderness, no distension. EXT: warm and well perfused with no edema NEURO: awake, alert, oriented, no focal deficits Objective Labs 11/20/22 12:40 11/20/22 12:40 Labs: Laboratory Results - last 24 hr 11/20/22 11/20/22 12:40 12:40 WBC 6.0 D RBC 3.63 L Hgb 11.4 L Hct 33.4 L MCV 91.8 MCH 31.3 MCHC 34.1 RDW 13.1 Plt Count 281 Neut % (Auto) 69.8 D Lymph % (Auto) 21.0 L Arroyo % (Auto) 6.0 Eos % (Auto) 2.7 Baso % (Auto) 0.5 Neut # (Auto) 4200 Lymph # (Auto) 1300 [place]royo # (Auto) 400 Eos # (Auto) 200 Baso # (Auto) 0 Sodium 133 L Potassium 4.1 Chloride 99 Carbon Dioxide 27 BUN 13 Creatinine 0.81 Estimated GFR > 60 BUN/Creatinine Ratio 16.0 Glucose 137 H Calcium 8.9 PFSH Medical History Anxiety Chronic back pain Constipation Cystitis Do not resuscitate Dysphonia Essential hypertension Generalized anxiety disorder Glomerulonephritis Insomnia Measles Mixed hyperlipidemia Osteopenia Pneumonia Retinal detachment (~2021) Rosacea (~1990) Stress reaction Surgical History Anesthesia History of arthroscopy History of hysterectomy (1999) History of laparotomy History of surgery (1999) Hx of appendectomy Hx of bilateral cataract extraction (2014) Family History Father Cancer Mother History of heart disease Hypertension Stroke Brother Substance use Grandfather Diabetes mellitus Social History household members: none Smoking Status: Never smoker alcohol intake: current Discharge Plan Discharge Plan Patient Disposition: Home Provider Discharge Comment: You were admitted with a UTI and received IV antibiotics and will now finish 1 week of oral antibiotics at home. Discharge orders & Medications Prescriptions: New cefdinir 300 mg capsule 300 mg PO BID 7 Days Qty: 14 0RF Continued ondansetron 4 mg tablet,disintegrating 4 mg PO Q8H PRN (Reason: nausea and vomiting) Qty: 10 0RF atorvastatin 10 mg tablet 10 mg PO DAILY Qty: 90 3RF doxycycline hyclate 20 mg tablet 20 mg PO DAILY Qty: 90 3RF amlodipine 5 mg tablet 5 mg PO DAILY Qty: 90 3RF benzonatate 100 mg capsule 100 mg PO BID-TID PRN (Reason: cough) Qty: 30 2RF zolpidem 5 mg tablet 5 mg PO BEDTIME PRN (Reason: sleep) Qty: 15 2RF lisinopril 20 mg tablet 20 mg PO DAILY Qty: 90 3RF cholecalciferol (vitamin D3) 125 mcg (5,000 unit) capsule 125 mcg PO DAILY cyanocobalamin (vitamin B-12) 1,000 mcg capsule 1,000 mcg PO DAILY docusate sodium [Stool Softener] 100 mg tablet 100 mg PO DAILY PRN Probiotic 20 billion cell capsule 20,000 mmu cells PO DAILY Rx Instructions: administer with a meal Discontinued nitrofurantoin monohyd/m-cryst [Macrobid] 100 mg capsule 100 mg PO Q12H 5 Days Qty: 10 0RF Rx Instructions: must administer with a meal/food Medication counseling provided by Pharmacist: Yes Follow up/Referrals: Rex Mata MD [Primary Care Provider] - 1 Week Visit Report/Discharge Packet Stand Alone Forms: Patient Portal/API, Stroke Signs & Symptoms Discharge Data Primary Care Provider: Rex Mata V Discharges patient from system. Discharge Date/Time: 11/20/22 15:15 Quality VTE Deep Vein Thrombosis/Pulmonary Embolism Present on Admission: No
[2022-11-20] MEDS: cefTRIAXone 1,000 MG in SODIUM CHLORIDE 0.9% 100 ML 200 MG IV (13:30)
--- NOTE | 2022-11-20 14:15 | PC.NURSE ---
Addendum entered by Idalmis Franz R.N. 11/20/22 15:33: She is escorted via w/ch with all of her belongings to private vehicle with friend for discharge home at approximately 1515 Original Note: Pt is A&OX4, VSS, afebrile on RA. She is ambulating in the room to BR independently. She reports minimal body aches (from arthritis) controlled well with prn tylenol. She has a good appetite today eating majority of her meals. MD Messer at bedside this afternoon clearing her for discharge home after re evaluating laboratory blood work. She verbalizes understanding of discharge medications, activity, s/sx of worsening symptoms. She is scheduled to discharge home today with friend via private care.
== END 2022-11-20 15:15 | disposition home or self-care (01) | DRG 690 ==
LOC: ED 20:16 → AC 20:46
PROVIDERS: Student in an Organized Health Care Education/Training Program; Admitting Provider Internal Medicine; Emergency Provider Emergency Medicine; PCP Internal Medicine; Referring Provider Emergency Medicine; Visit Provider Internal Medicine
DX: N12 Tubulo-interstitial nephritis, not specified as acute or chronic (principal); E87.1 Hypo-osmolality and hyponatremia; I10 Essential (primary) hypertension; E78.5 Hyperlipidemia, unspecified; B96.20 Unspecified Escherichia coli [E. coli] as the cause of diseases classified elsewhere; G47.00 Insomnia, unspecified; Z66 Do not resuscitate; Z20.822 Contact with and (suspected) exposure to COVID-19; R30.0 Dysuria
CPT/HCPCS: 0241U; 36415; 51798; 71045; 76770; 80048; 80053; 81002; 83605; 83690; 84145; 85025; 87040; 87077; 87086; 87186; 87635; 93005; 96365; 99284; C9803; J0696; J1644; J2405

== ENCOUNTER → 2023-02-13 08:36 | Outpatient (CLI) | payer MEDICARE, OTHER, SELFPAY ==
[2022-11-20 16:42] VITALS: BMI 21.9
[2023-02-13 09:23] LABS: Appearance Urine UA CLEAR; Bilirubin Urine UA NEGATIVE (NEGATIVE); Color Urine UA YELLOW; Glucose Urine UA NEGATIVE (Negative); Ketones Urine UA NEGATIVE (NEGATIVE); Leukocyte Esterase Urine UA 1+ (NEGATIVE); Nitrite Urine UA NEGATIVE (Negative); Occult Blood Urine UA NEGATIVE (Negative); Protein Urine UA NEGATIVE (Negative); Specific Gravity Urine UA <=1.005 (1.000-1.035); Urobilinogen Urine UA 0.2 E.U./dL (0.2)
[2023-02-13 09:34] LABS: Bacteria Urine Occasional (0-1); Culture Indicated Urine Specimen Cultured; RBC Urine 1-5/HPF (0-5/HPF); Squamous Epithelial Cell Urine 1-5 /HPF (0-5/HPF); WBC Urine 1-5/HPF (0-5/HPF)
[2023-02-13 09:48] LABS: Hematocrit 38.5 % (36-46); Hemoglobin 13.4 g/dL (12.0-16.0); Mean Corpuscular HGB Conc 34.8 % (30-36); Mean Corpuscular Hemoglobin 31.4 PG (26-34); Mean Corpuscular Volume 90.2 fL (80-100); Platelet Count 313 X10^3/uL (150-400); Red Blood Cell Count 4.27 X10^6/uL (4.0-5.2); Red Cell Distribution Width 13.2 % (11.6-14.8)
[2023-02-13 10:08] LABS: Alanine Aminotransferase 21 IU/L (<35); Albumin 4.7 g/dL (3.5-5.0); Albumin Globulin Ratio 1.4 (1.0-2.8); Alkaline Phosphatase 99 U/L (38-126); Aspartate Aminotransferase 28 IU/L (14-36); BUN Creatinine Ratio 16.9 (6-22); Bilirubin Total 0.9 mg/dL (0.2-1.3); Blood Urea Nitrogen 13 mg/dL (7-17); Calcium 9.8 mg/dL (8.4-10.2); Carbon Dioxide 27 mmol/L (22-32); Chloride 98 mmol/L (98-107); Estimated Glomerular Filt Rate > 60 mL/min (>60); Globulin 3.3 g/dL (1.7-4.1); Glucose 85 mg/dL (80-110); HEMOLYSIS < 15 (0-50); Sodium 134 mmol/L (137-145)
[2023-02-13 10:42] LABS: TSH w/ Reflex to FT4 2.67 uIU/mL (0.47-4.68)
[2023-02-13 10:58] LABS: Vitamin B12 > 1000 pg/mL (239-931)
== END ==
PROVIDERS: PCP Internal Medicine; Referring Provider Internal Medicine; Visit Provider Internal Medicine
DX: E53.8 Deficiency of other specified B group vitamins (principal); E78.2 Mixed hyperlipidemia; I10 Essential (primary) hypertension; N39.0 Urinary tract infection, site not specified
CPT/HCPCS: 36415; 80053; 81001; 82607; 84443; 85027; 87077; 87086; 87186

== ENCOUNTER → 2023-05-16 09:45 | Outpatient (CLI) | payer MEDICARE, OTHER, SELFPAY ==
[2022-11-20 16:42] VITALS: BMI 21.9
--- NOTE | 2023-05-16 09:48 | DI.MG.S_ITS ---
BILATERAL DIGITAL SCREENING MAMMOGRAM 3D/2D WITH CAD: 05/16/2023 CLINICAL: Routine screening. Family history of breast cancer. Comparison is made to exams dated: 05/14/2022 mammogram, 05/04/2019 mammogram, and 09/12/2016 mammogram - [facility]. Both breasts are heterogeneously dense, which may obscure small masses (category c / 51-75% glandular tissue). Current study was also evaluated with a Computer Aided Detection (CAD) system. No significant masses, calcifications, or other findings are seen in either breast. There has been no significant interval change. IMPRESSION: NEGATIVE There is no mammographic evidence of malignancy. A 1 year screening mammogram is recommended. Based on the Tyrer Cuzick model (a risk assessment model) the patient's lifetime risk is 3.0% and her 10 year risk is 0.0%. According to the ACR, ACS, and NCCN guidelines, an annual breast MRI exam along with mammogram is recommended if the patient's lifetime risk is 20% or greater. This exam was interpreted at Station ID: [id number]. NOTE: For mammograms, a report in lay terms will be sent to the patient. Approximately 15% of breast malignancies will not be visualized mammographically. In the management of a palpable breast mass, a negative mammogram must not discourage biopsy of a clinically suspicious lesion. Electronically Signed By: Robina anthony/vito:05/18/2023 12:32:57 letter sent: Normal Exam ACR BI-RADS Category 1: Negative 3341F
== END ==
PROVIDERS: PCP Internal Medicine; Referring Provider Internal Medicine; Visit Provider Internal Medicine
DX: Z12.31 Encounter for screening mammogram for malignant neoplasm of breast (principal); Z80.3 Family history of malignant neoplasm of breast
CPT/HCPCS: 77063; 77067

== ENCOUNTER → 2023-06-01 08:23 | Outpatient (CLI) | payer MEDICARE, OTHER, SELFPAY ==
[2022-11-20 16:42] VITALS: BMI 21.9
== END ==
PROVIDERS: PCP Internal Medicine; Visit Provider Nurse Practitioner Family
DX: R30.0 Dysuria (principal)
CPT/HCPCS: 87086

== ENCOUNTER → 2023-06-11 15:09 | Outpatient (CLI) | payer MEDICARE, OTHER, SELFPAY ==
[2022-11-20 16:42] VITALS: BMI 21.9
[2023-06-11 17:13] LABS: Appearance Urine UA CLEAR; Bilirubin Urine UA NEGATIVE (NEGATIVE); Color Urine UA YELLOW; Glucose Urine UA NEGATIVE (Negative); Ketones Urine UA NEGATIVE (NEGATIVE); Leukocyte Esterase Urine UA 1+ (NEGATIVE); Nitrite Urine UA NEGATIVE (Negative); Occult Blood Urine UA NEGATIVE (Negative); Protein Urine UA NEGATIVE (Negative); Specific Gravity Urine UA <=1.005 (1.000-1.035); Urobilinogen Urine UA 0.2 E.U./dL (0.2)
[2023-06-11 17:28] LABS: Bacteria Urine Few (2-10); Culture Indicated Urine Specimen Cultured; RBC Urine 0-1/HPF (0-5/HPF); Squamous Epithelial Cell Urine 0-1 /HPF (0-5/HPF); WBC Urine 1-5/HPF (0-5/HPF)
== END ==
PROVIDERS: PCP Internal Medicine; Referring Provider Internal Medicine; Visit Provider Internal Medicine
DX: N39.0 Urinary tract infection, site not specified (principal); R39.15 Urgency of urination; R35.0 Frequency of micturition
CPT/HCPCS: 81001; 87077; 87086; 87186

== ENCOUNTER → 2024-02-17 06:50 | Outpatient (CLI) | payer MEDICARE, SELFPAY ==
[2022-11-20 16:42] VITALS: BMI 21.9
[2024-02-17 08:11] LABS: Aspartate Aminotransferase 28 IU/L (14-36); BUN Creatinine Ratio 14.8 (6-22); Blood Urea Nitrogen 13 mg/dL (7-17); Calcium 9.4 mg/dL (8.4-10.2); Carbon Dioxide 28 mmol/L (22-32); Chloride 101 mmol/L (98-107); Cholesterol 199 mg/dL (140-199); Estimated Glomerular Filt Rate > 60 mL/min (>60); Glucose 86 mg/dL (80-110); HDL Cholesterol 109 mg/dL (40-60); HEMOLYSIS < 15 (0-50); LDL Cholesterol Calculated 79 mg/dL (<100); Potassium 4.8 mmol/L (3.4-5.1); Sodium 135 mmol/L (137-145); Triglycerides 56 mg/dL (35-150)
== END ==
PROVIDERS: PCP Internal Medicine; Referring Provider Internal Medicine; Visit Provider Internal Medicine
DX: E78.2 Mixed hyperlipidemia (principal); I10 Essential (primary) hypertension
CPT/HCPCS: 36415; 80048; 80061; 84450

== ENCOUNTER → 2024-11-10 11:22 | Outpatient (CLI) | payer MEDICARE, SELFPAY ==
[2022-11-20 16:42] VITALS: BMI 21.9
--- NOTE | 2024-11-10 11:24 | DI.MG.S_ITS ---
MM screening mammo BI: 11/10/2024. BI-RADS: 1 CLINICAL: 79-year old female for bilateral screening mammogram. Tyrer-Cuzick lifetime risk of 2.5%. Current reported family history of breast cancer: daughter. PRIOR EXAMS 05/16/2023, 05/14/2022, 05/04/2019, 09/12/2016. MAMMOGRAPHY TECHNIQUE: 2D and 3D (tomosynthesis) digital mammographic views obtained, with additional images as needed for full coverage. Current study was also evaluated with a Computer Aided Detection (CAD) system. DENSITY C. The breasts are heterogeneously dense, which may obscure small masses. MAMMOGRAPHY FINDINGS Bilateral: No suspicious mass, asymmetry, microcalcification, or other abnormality seen. No significant change from comparison. IMPRESSION: * No evidence of malignancy. RECOMMENDATIONS Bilateral * Annual screening mammography. OVERALL ASSESSMENT CATEGORY BI-RADS-1: Negative. The [employer] recommends annual screening mammography beginning at age 40 for women with average risk of breast cancer. ELECTRONICALLY SIGNED: Julisa Del Rio M.D. on 11/10/2024 at 12:41:33 PM PT Interpreting Station ID: [id number]
== END ==
PROVIDERS: PCP Internal Medicine; Referring Provider Internal Medicine; Visit Provider Internal Medicine
DX: Z12.31 Encounter for screening mammogram for malignant neoplasm of breast (principal); Z80.3 Family history of malignant neoplasm of breast; R92.333 Mammographic heterogeneous density, bilateral breasts
CPT/HCPCS: 77063; 77067

== ENCOUNTER → 2024-11-21 11:59 | Outpatient (CLI) | payer MEDICARE, SELFPAY ==
[2022-11-20 16:42] VITALS: BMI 21.9
--- NOTE | 2024-11-21 12:01 | DI.MRI.S_ITS ---
MR breast BI wo/w con: 11/21/2024. BI-RADS: 1 CLINICAL: 79-year old female for bilateral diagnostic breast MRI. Mammographically Dense breast tissue. Current reported family history of breast cancer: daughter. PRIOR EXAMS: 11/10/2024, 05/16/2023, 05/14/2022, 05/04/2019, 09/12/2016. MRI TECHNIQUE: Bilateral breast MRI was performed on a 1.5 Bess magnet using a dedicated breast coil with mild compression. Axial T1 and T2 STIR sequences were obtained. Dynamic contrast enhanced VIBRANT fat-suppressed sequences were obtained. Delayed sagittal high resolution or sagittal reconstructed isotropic sequence was also obtained. Subtraction images and maximum intensity projection images were obtained. The study was evaluated using [employer] software. IV Contrast: 20 ml ProHance. FIBROGLANDULAR TISSUE Bilateral: C. Heterogeneous fibroglandular tissue. BACKGROUND PARENCHYMAL ENHANCEMENT Bilateral: Mild symmetrical background parenchymal enhancement. BREAST FINDINGS Bilateral There are no abnormal axillary or internal mammary lymph nodes. No suspicious mass, suspicious non-mass enhancement, or other concerning finding identified. ABDOMEN FINDINGS Non-enhancing STIR hyperintense lesion in the liver likely represents a hepatic cyst. IMPRESSION: * No evidence of malignancy. RECOMMENDATIONS Bilateral * Annual screening mammography. COMMENTS: The imaging literature indicates that a negative contrast breast MRI examination has a high sensitivity and a moderate specificity for detecting and excluding invasive carcinomas to a detection threshold of 3-5 mm; nonetheless, appropriate clinical and mammographic follow-up are recommended. MRI is not sensitive for detecting DCIS (ductal carcinoma in situ) and may not detect large invasive neoplasms that show only minimal enhancement such as mucinous carcinoma. If there are suspicious calcifications or clinically worrisome palpable masses, then biopsy should still be considered. Invasive neoplasms can be hidden by co-existent and benign enhancement caused by mastitis, hormone therapy effects, radiation therapy, , and recent biopsy or surgery. False positive examinations can occur in a number of circumstances, including breasts that have recently been subject to invasive procedures and those that contain atypical ductal hyperplasia, hormonally stimulated glandular tissue, fat necrosis, or radial scars. OVERALL ASSESSMENT CATEGORY BI-RADS-1: Negative. ELECTRONICALLY SIGNED: Julisa Del iRo M.D. on 11/21/2024 at 05:18:24 PM PT Interpreting Station ID: [id number]
== END ==
PROVIDERS: PCP Internal Medicine; Referring Provider Internal Medicine; Visit Provider Internal Medicine
DX: Z12.39 Encounter for other screening for malignant neoplasm of breast (principal); R92.30 Dense breasts, unspecified; Z80.3 Family history of malignant neoplasm of breast
CPT/HCPCS: 77049; A9579

== ENCOUNTER → 2025-03-09 09:23 | Outpatient (CLI) | payer MEDICARE, SELFPAY ==
[2022-11-20 16:42] VITALS: BMI 21.9
[2025-03-09 10:00] LABS: Hematocrit 36.7 % (36-46); Hemoglobin 12.5 g/dL (12.0-16.0); Mean Corpuscular HGB Conc 34.1 % (30-36); Mean Corpuscular Hemoglobin 31.4 PG (26-34); Mean Corpuscular Volume 92.0 fL (80-100); Platelet Count 295 X10^3/uL (150-400)
[2025-03-09 10:17] LABS: Blood Urea Nitrogen 17 mg/dL (7-17); Calcium 9.7 mg/dL (8.4-10.2); Carbon Dioxide 26 mmol/L (22-32); Chloride 100 mmol/L (98-107); Cholesterol 200 mg/dL (140-199); Estimated Glomerular Filt Rate > 60 mL/min (>60); Glucose 93 mg/dL (70-99); HDL Cholesterol 100 mg/dL (40-60); HEMOLYSIS < 15 (0-50); Potassium 5.0 mmol/L (3.4-5.1); Sodium 133 mmol/L (137-145); Triglycerides 81 mg/dL (35-150)
== END ==
PROVIDERS: PCP Internal Medicine; Referring Provider Internal Medicine; Visit Provider Internal Medicine
DX: I10 Essential (primary) hypertension (principal); E78.2 Mixed hyperlipidemia
CPT/HCPCS: 36415; 80048; 80061; 84450; 85027

== ENCOUNTER → 2025-06-08 13:06 | Outpatient (CLI) | payer MEDICARE, SELFPAY ==
[2022-11-20 16:42] VITALS: BMI 21.9
--- NOTE | 2025-06-08 13:07 | DI.RAD.S_ITS ---
PROCEDURE: XR SHOULDER LT MIN 2V INDICATIONS: LEFT SHOULDER PAIN TECHNIQUE: 3 views of the shoulder were acquired. COMPARISON: None. FINDINGS: Bones: No fractures. Mild widening of the acromioclavicular interval. No suspicious bony lesions. Visualized ribs appear intact. Mild acromioclavicular joint degeneration. Soft tissues: No suspicious soft tissue calcifications. IMPRESSION: Mild degenerative changes. Mild widening of the acromioclavicular interval, correlate with point tenderness to assess acuity. No acute osseous abnormalities otherwise. Dictated by: Bradley Cooper M.D. on 06/10/2025 at 14:03 Approved by: Bradley Cooper M.D. on 06/10/2025 at 14:04
--- NOTE | 2025-06-08 13:07 | DI.RAD.S_ITS ---
PROCEDURE: XR CERVICAL SPINE 4V OR 5V INDICATIONS: NECK PAIN TECHNIQUE: Of views of the cervical spine acquired. COMPARISON: None. FINDINGS: Bones: No fractures or dislocations to the T1 level. Oblique images demonstrate multilevel bony foraminal stenoses. Loss of the normal cervical lordosis. There are multilevel degenerative changes of the cervical spine with facet and uncovertebral arthropathy, disc height loss with degenerative endplate changes and spurring. Soft tissues: No prevertebral soft tissue swelling. IMPRESSION: Moderate to severe multilevel degenerative changes of the cervical spine. Dictated by: Bradley Cooper M.D. on 06/10/2025 at 14:02 Approved by: Bradley Cooper M.D. on 06/10/2025 at 14:03
--- NOTE | 2025-06-08 13:07 | DI.RAD.S_ITS ---
PROCEDURE: XR SHOULDER RT MIN 2V INDICATIONS: RIGHT SHOULDER PAIN TECHNIQUE: 3 views of the shoulder were acquired. COMPARISON: None. FINDINGS: Bones: No fractures or dislocations. No suspicious bony lesions. Visualized ribs appear intact. Mild acromioclavicular and glenohumeral joint degeneration. Soft tissues: No suspicious soft tissue calcifications. IMPRESSION: Mild degenerative changes. No acute osseous abnormalities. Dictated by: Bradley Cooper M.D. on 06/10/2025 at 14:05 Approved by: Bradley Cooper M.D. on 06/10/2025 at 14:05
== END ==
PROVIDERS: PCP Internal Medicine; Referring Provider Physical Medicine & Rehabilitation; Visit Provider Physical Medicine & Rehabilitation
DX: M47.812 Spondylosis without myelopathy or radiculopathy, cervical region (principal); M25.511 Pain in right shoulder; M25.512 Pain in left shoulder; M54.2 Cervicalgia
CPT/HCPCS: 72050; 73030

== ENCOUNTER 2025-06-08 15:21 | Emergency (ER) | payer MEDICARE, SELFPAY ==
[2022-11-20 16:42] VITALS: BMI 21.9
[2025-06-08 15:43] VITALS: BP 173/80; PULSE 89; RESP 18; TEMP 36.5; O2SAT 100; BMI 20.5
--- NOTE | 2025-06-08 16:32 | ED_ITS ---
HPI - Extremity Problem General Chief complaint: Extremity Problem,Nontraumatic Stated complaint: ankles swelling Time Seen by Provider: 06/08/25 16:09 History of Present Illness HPI Narrative: Patient sent here from walk-in clinic for complaints of pain and redness medial distal 3rd of each leg. Denies any recent injury. Denies any history of diabetes. She did travel to [place] and had again in April. No prior history of blood clots in legs or lungs. Knee to toes exposed bilaterally. Related Data Home Medications ?Medication ?Instructions ?Recorded ?Confirmed cholecalciferol (vitamin D3) 125 125 mcg PO DAILY 03/3106/12/25 mcg (5,000 unit) capsule cyanocobalamin (vitamin B-12) 1,000 mcg PO DAILY 01/1506/12/25 1,000 mcg capsule docusate sodium 100 mg tablet 100 mg PO DAILY PRN 03/3106/12/25 (Stool Softener) lactobacillus comb no.10 20 20,000 mmu cells PO DAILY 01/15/22 06/12/25 billion cell capsule (Probiotic) cyclosporine 0.05 % eye drops in a 1 drp EYE-BOTH BID 11/26/22 06/12/25 dropperette Previous Rx's ?Medication ?Instructions ?Recorded cephalexin 500 mg capsule 500 mg PO TID #15 caps 02/15 amlodipine 5 mg tablet 5 mg PO DAILY #90 tabs 04/03 atorvastatin 10 mg tablet 10 mg PO DAILY #90 tabs 03/11 01/01 cefdinir 300 mg capsule 300 mg PO BID #14 caps 04/03 doxycycline hyclate 20 mg tablet 20 mg PO DAILY #90 ta bs 04/03/25 estradiol 0.01% (0.1 mg/gram) 1 g vaginal 2XW #42.5 gr ams 04/03/25 vaginal cream lisinopril 20 mg tablet 20 mg PO DAILY #90 tabs 03/11 01/01 zolpidem 5 mg tablet 5 mg PO BEDTIME PRN sleep #9 0 tabs 04/03/25 cephalexin 500 mg capsule 500 mg PO QID #28 caps 06/12 ondansetron 4 mg disintegrating 4 mg PO Q6H PRN nausea and 06/12/25 tablet vomiting #20 tabs Allergies Allergy/AdvReac Type Severity Reaction Status Date / Time Sulfa (Sulfonamide Allergy Mild Verified 06/12/25 09:19 Antibiotics) Review of Systems Review of Systems Narrative: GENERAL: Negative chills, fatigue, malaise, fever, sweats. HEENT: Negative sinus pain, ear pain, sore throat RESPIRATORY: Negative dyspnea, cough CARDIOVASCULAR: Negative chest pain, palpitations GASTROINTESTINAL: Negative vomiting, nausea, abdominal pain : Negative dysuria, frequency, hematuria MUSCULOSKELETAL: Negative muscle or bony pain SKIN: Negative rash, skin lesions positive erythema NEUROLOGIC: Negative weakness, numbness ROS Unobtainable: All systems reviewed & are unremarkable except as noted in HPI and below Patient History Medical History (Updated 06/12/25 @ 09:53 by Rex Mata MD) Hyponatremia Anemia Abnormal LFTs Radiculopathy, cervicothoracic region Family history of breast cancer gene mutation in first degree relative Menopausal syndrome Recurrent UTI Stress reaction Do not resuscitate Generalized anxiety disorder Osteopenia Constipation Insomnia Mixed hyperlipidemia Essential hypertension Rosacea (~1990) Anxiety Chronic back pain Measles Dysphonia Retinal detachment (~2021) Glomerulonephritis Cystitis Pneumonia Surgical History Anesthesia Hx of bilateral cataract extraction (2014) History of arthroscopy History of laparotomy History of surgery (1999) History of hysterectomy (1999) Hx of appendectomy Family History Father Cancer Mother History of heart disease Hypertension Stroke Brother Substance use Grandfather Diabetes mellitus Daughter Breast CA Social History (Updated 03/09/25 @ 08:45 by Joanie Menendez MA) marital status: unmarried,single details: , two children ([facility]), retired teacher number of children: 2 household members: none pets and animals: Yes current occupational exposures/hazards: No special yeny needs: No seatbelt use: always firearms in home: No alcohol intake: current substance use type: does not use during the past year weight has: remained stable well-balanced diet: daily or most days Type(s) of exercise: walking, swimming and additional Smoking Status: Never smoker alcohol intake frequency: 0-2 drinks per day Exam Narrative Exam Narrative: GENERAL: in no distress, not toxic not dyspneic HEAD: Normocephalic. EYES: Pupils equal round ENT: Mucous membranes moist. NECK: Trachea midline. EXTREMITIES: No gross deformities. Knee to toes exposed bilaterally. Feet are warm soft pink brisk cap refill strong pedal pulses light touch intact to feet and toes. There is erythema and and mild edema to the medial aspect of each leg. No crepitus no pain out of portion of exam. No signs of necrotizing fasciitis. Calves are warm soft pink. No palpable cords. No signs of compartment syndrome. NEURO: AOx4. Clear speech SKIN: Warm and dry PSYCH: Not anxious, is cooperative Initial Vital Signs Initial Vital Signs: Vital Signs Temperature 97.7 F 06/08/25 15:43 Pulse Rate 89 06/08/25 15:43 Respiratory Rate 18 06/08/25 15:43 Blood Pressure 173/80 H 06/08/25 15:43 Pulse Oximetry 100 06/08/25 15:43 Oxygen Delivery Method Room Air 06/08/25 15:43 Course Orders Ordered: Discontinued Medications Doxycycline Hyclate 100 mg/ (Sodium Chloride) 100 mls @ 100 mls/hr IV NOW ONE Stop: 06/08/25 16:39 Last Infusion: 06/08/25 17:08 Dose: Infused Documented By: Admin: 06/08/25 16:46 Dose: 100 mls/hr Documented By: JHOANA Ketorolac Tromethamine (Ketorolac 30 Mg/Ml Vial) 15 mg IV NOW ONE Stop: 06/08/25 16:39 Last Admin: 06/08/25 16:46 Dose: 15 mg Documented By: JHOANA Vital Signs Vital signs: Vital Signs - 8 hr 06/08/25 15:43 Temperature 97.7 F Pulse Rate 89 Respiratory Rate 18 Blood Pressure 173/80 H Pulse Oximetry 100 Oxygen Delivery Method Room Air MDM - Extremity (Nontraumatic) Lab Data 06/08/25 16:00 06/08/25 16:00 Labs: Lab Results 06/08/25 Range/Units 16:00 WBC 4.7 (4.5-11.0) X10^3/uL RBC 3.65 L (4.0-5.2) X10^6/uL Hgb 11.5 L (12.0-16.0) g/dL Hct 32.8 L (36-46) % MCV 89.8 (80-100) fL MCH 31.6 (26-34) PG MCHC 35.1 (30-36) % RDW 13.7 (11.6-14.8) % Plt Count 284 (150-400) X10^3/uL Neut % (Auto) 59.7 (50-75) % Lymph % (Auto) 27.6 (25-40) % [place] % (Auto) 10.4 (3-14) % Eos % (Auto) 1.7 L (2-4) % Baso % (Auto) 0.6 (0-2) % Neut # (Auto) 2800 (9631-5618) /uL Lymph # (Auto) 1300 (3901-2929) /uL [place] # (Auto) 500 (0-900) /uL Eos # (Auto) 100 (0-450) /uL Baso # (Auto) 0 (0-100) /uL Sodium 128 L (137-145) mmol/L Potassium 3.9 (3.4-5.1) mmol/L Chloride 94 L (98-107) mmol/L Carbon Dioxide 24 (22-32) mmol/L BUN 12 (7-17) mg/dL Creatinine 0.76 (0.52-1.04) mg/dL Estimated GFR > 60 (>60) mL/min BUN/Creatinine Ratio 15.8 (6-22) Glucose 114 H (70-99) mg/dL Calcium 9.4 (8.4-10.2) mg/dL Total Bilirubin 0.9 (0.2-1.3) mg/dL AST 44 H (14-36) IU/L ALT 36 H (<35) IU/L Alkaline Phosphatase 128 H (38-126) U/L Total Protein 8.0 (6.3-8.2) g/dL Albumin 4.5 (3.5-5.0) g/dL Globulin 3.5 (1.7-4.1) g/dL Albumin/Globulin Ratio 1.3 (1.0-2.8) MDM Narrative Medical decision making narrative: Patient sent here from walk-in clinic for complaints of pain and redness medial distal 3rd of each leg. Denies any recent injury. Denies any history of diabetes. She did travel to [place] and had again in April. No prior history of blood clots in legs or lungs. Knee to toes exposed bilaterally MDM After history and exam, CBC CMP bilateral tib-fib x-rays bilateral ultrasound of legs. Toradol doxycycline Differential considered: Includes but not limited to cellulitis necrotizing fasciitis osteomyelitis DVT SVT venous stasis Medical records reviewed: Walk-in clinic prior to arrival. Lab Test results independently reviewed as above. Pertinent findings: WBC 4.7 sodium 128 potassium 3.9 Imaging studies independently reviewed: Bilateral leg ultrasounds no DVT. Bilateral x-rays tib-fib no acute finding Consultations: None indicated this time. Re-evaluations: 6:05 p.m.. Updated patient results. They are reassuring. Return precautions reviewed with patient. Nontoxic at discharge. Return precautions reviewed. She is being treated for cellulitis. Skin infection. She desires discharge home. Discussion: Appropriate for discharge home. Exam is reassuring. Return precautions reviewed with patient. Laboratory studies imaging studies reassuring. Patient being treated for cellulitis. Diagnosis: Leg cellulitis Discharge Plan Departure Patient Disposition: Home Clinical Impression: Cellulitis Qualifiers: Site of cellulitis: extremity Site of cellulitis of extremity: lower extremity Laterality: unspecified laterality Qualified Code(s): L03.119 - Cellulitis of unspecified part of limb Instructions: DI for Cellulitis -- Adult Activity Restrictions/Additional Instructions: You are being treated for cellulitis/skin infection. Antibiotics have been started today and prescriptions have been provided for you as well as short course of pain medication. No driving operating machinery when taking prescribed pain medication. See your family doctor next week for re-evaluation. Return if worse if any questions or concerns. Your laboratory studies and imaging studies are reassuring today. Prescriptions: No Action cyclosporine 0.05 % dropperette 1 drp EYE-BOTH BID cephalexin 500 mg capsule 500 mg PO TID Qty: 15 1RF zolpidem 5 mg tablet 5 mg PO BEDTIME PRN (Reason: sleep) Qty: 90 1RF cefdinir 300 mg capsule 300 mg PO BID Qty: 14 1RF lisinopril 20 mg tablet 20 mg PO DAILY Qty: 90 3RF atorvastatin 10 mg tablet 10 mg PO DAILY Qty: 90 3RF amlodipine 5 mg tablet 5 mg PO DAILY Qty: 90 3RF doxycycline hyclate 20 mg tablet 20 mg PO DAILY Qty: 90 3RF estradiol 0.01 % (0.1 mg/gram) cream 1 g vaginal 2XW Qty: 42.5 3RF cholecalciferol (vitamin D3) 125 mcg (5,000 unit) capsule 125 mcg PO DAILY cyanocobalamin (vitamin B-12) 1,000 mcg capsule 1,000 mcg PO DAILY docusate sodium [Stool Softener] 100 mg tablet 100 mg PO DAILY PRN Probiotic 20 billion cell capsule 20,000 mmu cells PO DAILY Rx Instructions: administer with a meal cephalexin 500 mg capsule 500 mg PO QID Qty: 28 0RF ondansetron 4 mg tablet,disintegrating 4 mg PO Q6H PRN (Reason: nausea and vomiting) Qty: 20 0RF Referrals: Rex Mata MD [Primary Care Provider, Internal Medicine] Stand Alone Forms: Patient Portal/API
--- NOTE | 2025-06-08 16:37 | DI.US.S_ITS ---
PROCEDURE: US PERIPH VENOUS LOW EXTREM BI INDICATIONS: PAIN/SWELLING TECHNIQUE: Real-time imaging, as well as color and pulse Doppler interrogation, were performed of the deep veins of both legs from the inguinal ligament to the popliteal fossa, with documentation of the visualized calf veins. COMPARISON: None. FINDINGS: Right: The common femoral, femoral, popliteal, and the visualized calf veins are normally compressible, and free of intraluminal thrombus. Color and pulse Doppler demonstrate normal phasic intravascular flow. There is normal augmentation response to distal compression maneuver. Left: The common femoral, femoral, popliteal, and the visualized calf veins are normally compressible, and free of intraluminal thrombus. Color and pulse Doppler demonstrate normal phasic intravascular flow. There is normal augmentation response to distal compression maneuver. IMPRESSION: No findings of deep venous thrombosis in either lower extremity. Dictated by: Jose Goetz M.D. on 06/08/2025 at 17:54 Approved by: Jose Goetz M.D. on 06/08/2025 at 17:54
--- NOTE | 2025-06-08 16:37 | DI.RAD.S_ITS ---
PROCEDURE: XR TIBIA FIBULA LT 2V INDICATIONS: Pain/redness Pain/redness TECHNIQUE: 2 views of the tibia and fibula were acquired. COMPARISON: None. FINDINGS: Bones: No fractures or dislocations. No suspicious bony lesions. Soft tissues: No suspicious soft tissue calcifications or masses. IMPRESSION: No acute bony abnormality. Dictated by: Amor Lynn M.D. on 06/08/2025 at 16:55 Approved by: Amor Lynn M.D. on 06/08/2025 at 16:58
--- NOTE | 2025-06-08 16:37 | DI.RAD.S_ITS ---
PROCEDURE: XR TIBIA FUBULA RT 2V INDICATIONS: Pain/redness TECHNIQUE: 2 views of the tibia and fibula were acquired. COMPARISON: None. FINDINGS: Bones: No fractures or dislocations. No suspicious bony lesions. Soft tissues: No suspicious soft tissue calcifications or masses. IMPRESSION: No acute bony abnormality. Dictated by: Dong Chavarria M.D. on 06/08/2025 at 16:57 Approved by: Dong Chavarria M.D. on 06/08/2025 at 16:58
[2025-06-08] MEDS: DOXYCYCLINE 100 MG in SODIUM CHLORIDE 0.9% 100 ML IV (16:46)
[2025-06-08] MEDS: KETOROLAC 30 MG/ML VIAL 15 MG IV (16:46)
[2025-06-08 16:53] VITALS: BP 158/84
[2025-06-08 16:55] LABS: Add Manual Diff / Slide Review NO; Hematocrit 32.8 % (36-46); Hemoglobin 11.5 g/dL (12.0-16.0); Lymphocytes Absolute Auto 1300 /uL (1100-4500); Mean Corpuscular HGB Conc 35.1 % (30-36); Mean Corpuscular Hemoglobin 31.6 PG (26-34); Mean Corpuscular Volume 89.8 fL (80-100); Platelet Count 284 X10^3/uL (150-400)
[2025-06-08 16:58] VITALS: PULSE 76; O2SAT 98
[2025-06-08 17:00] VITALS: BP 152/82; PULSE 73; O2SAT 97
[2025-06-08 17:00] LABS: Alanine Aminotransferase 36 IU/L (<35); Albumin 4.5 g/dL (3.5-5.0); Albumin Globulin Ratio 1.3 (1.0-2.8); Alkaline Phosphatase 128 U/L (38-126); Blood Urea Nitrogen 12 mg/dL (7-17); Calcium 9.4 mg/dL (8.4-10.2); Carbon Dioxide 24 mmol/L (22-32); Chloride 94 mmol/L (98-107); Estimated Glomerular Filt Rate > 60 mL/min (>60); Globulin 3.5 g/dL (1.7-4.1); Glucose 114 mg/dL (70-99); HEMOLYSIS < 15 (0-50); Potassium 3.9 mmol/L (3.4-5.1); Sodium 128 mmol/L (137-145); Total Protein 8.0 g/dL (6.3-8.2)
[2025-06-08 17:30] VITALS: BP 165/86; PULSE 76; O2SAT 99
== END 2025-06-08 18:20 | disposition home or self-care (01) ==
PROVIDERS: Emergency Provider Emergency Medicine; PCP Internal Medicine
DX: L03.116 Cellulitis of left lower limb (principal); L03.115 Cellulitis of right lower limb; M47.812 Spondylosis without myelopathy or radiculopathy, cervical region; M54.2 Cervicalgia; M25.511 Pain in right shoulder; M25.512 Pain in left shoulder
CPT/HCPCS: 72050; 73030; 73590; 80053; 85025; 93970; 96365; 96375; 99283; 99284; J1885; J7050

== ENCOUNTER → 2025-06-12 11:40 | Outpatient (CLI) | payer MEDICARE, SELFPAY ==
[2025-06-09 11:35] VITALS: BMI 21.9
[2025-06-12 12:43] LABS: Hematocrit 31.7 % (36-46); Hemoglobin 11.0 g/dL (12.0-16.0); Mean Corpuscular HGB Conc 34.6 % (30-36); Mean Corpuscular Hemoglobin 31.5 PG (26-34); Mean Corpuscular Volume 90.9 fL (80-100); Platelet Count 336 X10^3/uL (150-400)
[2025-06-12 12:55] LABS: HEMOLYSIS < 15 (0-50); Iron 75 ug/dL (37-170)
[2025-06-12 13:01] LABS: Alanine Aminotransferase 33 IU/L (<35); Albumin 4.4 g/dL (3.5-5.0); Albumin Globulin Ratio 1.2 (1.0-2.8); Alkaline Phosphatase 110 U/L (38-126); Blood Urea Nitrogen 12 mg/dL (7-17); Calcium 9.2 mg/dL (8.4-10.2); Carbon Dioxide 25 mmol/L (22-32); Chloride 95 mmol/L (98-107); Estimated Glomerular Filt Rate > 60 mL/min (>60); Globulin 3.6 g/dL (1.7-4.1); Glucose 117 mg/dL (70-99); HEMOLYSIS < 15 (0-50); Potassium 4.4 mmol/L (3.4-5.1); Sodium 129 mmol/L (137-145); Total Protein 8.0 g/dL (6.3-8.2)
[2025-06-12 13:06] LABS: Percent Iron Saturation 23 % (15-50); Total Iron Binding Capacity 328 ug/dL (265-497); Transferrin 294 mg/dL (206-381)
[2025-06-12 13:30] LABS: Ferritin 176 ng/mL (11-264)
== END ==
PROVIDERS: PCP Internal Medicine; Referring Provider Internal Medicine; Visit Provider Internal Medicine
DX: R79.89 Other specified abnormal findings of blood chemistry (principal); D64.9 Anemia, unspecified; L03.119 Cellulitis of unspecified part of limb
CPT/HCPCS: 36415; 80053; 82728; 83540; 83550; 85027; 85651; 86140

== ENCOUNTER → 2025-06-22 13:38 | Outpatient (CLI) | payer MEDICARE, SELFPAY ==
[2025-06-09 11:35] VITALS: BMI 21.9
--- NOTE | 2025-06-22 13:42 | DI.MRI.S_ITS ---
PROCEDURE: MR CERVICAL SPINE WO CON INDICATIONS: chronic neck pain radiating to LUE TECHNIQUE: Noncontrast sagittal T1 spin echo and T2 fast spin echo, sagittal STIR, foraminal oblique sagittal T2 fast spin echo, and axial gradient echo or T2 fast spin echo through the cervical spine. COMPARISON: [facility], MR, C-SPINE WITHOUT CONTRAST, 07/28/2014, 18:15. [facility], CR, XR CERVICAL SPINE 4V OR 5V, 06/08/2025, 13:12. [facility], MR, MR CERVICAL SPINE WO CON, 05/13/2019, 6:25. FINDINGS: Image quality: Diagnostic, with note made of motion artifact. Alignment and Curvature: There is normal bony alignment. Bone Marrow: Marrow demonstrates normal overall signal. Spinal Cord: Visualized spinal cord has normal size and signal. No cerebellar tonsillar herniation. Paraspinous Soft Tissues: No paravertebral masses. Prevertebral soft tissues are normal in thickness. C2-C3: The disc height is well-preserved. Loss of disc signal is seen at this level. A mild degree of generalized disc osteophyte complex is seen. There is moderate left-sided facet hypertrophy. There is at least moderate left-sided and no right-sided neural narrowing. No central canal narrowing is seen. No significant change from the prior. C3-C4: Moderate loss of disc height is seen. Loss of disc signal is seen. Moderate disc osteophyte complex is seen which is eccentric to the left. Moderate facet joint hypertrophy is seen. There is at least moderate right-sided and moderate to severe left-sided neural narrowing. Mild central canal narrowing is seen. When comparison is made with the prior images, these findings are similar. C4-C5: Moderate loss of disc height is seen. Loss of disc signal is seen. Moderate generalized disc osteophyte complex is seen. There is a superimposed central disc osteophyte protrusion. Moderate facet joint hypertrophy is seen. At least moderate facet hypertrophy is seen. There is moderate to severe bilateral neural foraminal narrowing. Moderate central canal narrowing is seen. There is associated mass effect upon the ventral spinal cord. These imaging findings have progressed compared to the prior study. C5-C6: Mild loss of disc height is seen. Loss of disc signal is seen. Moderate generalized disc osteophyte complex is seen. Moderate facet joint hypertrophy is seen. There is moderate to severe bilateral neural foraminal narrowing seen, with an associated degree of compression seen upon the exiting nerve roots. Mild to moderate central canal narrowing is seen with minimal mass effect upon the ventral spinal cord. These degenerative changes are mildly progressed compared to 2019. C6-C7: Moderate loss of disc height is seen. Loss of disc signal is seen. Moderate generalized disc osteophyte complex is seen. There is a superimposed central disc osteophyte protrusion. Uncovertebral joint hypertrophy is seen at this level. Moderate facet joint hypertrophy is seen. There is moderate to severe bilateral neural foraminal narrowing, left worse than right. Moderate central canal narrowing is seen. There is associated mass effect upon the ventral spinal cord. These imaging findings have progressed compared to the prior study. C7-T1: The disc height is well-preserved. Loss of disc signal is seen at this level. Mild generalized disc bulge is seen. No significant neural foraminal or central canal narrowing can be seen. When comparison is made with the prior images, these findings are similar. IMPRESSION: Multiple levels of significant cervical spine degenerative change can be seen. The degenerative changes are progressed at a few levels compared to 2019. Dictated by: Kyle Lopez M.D. on 06/22/2025 at 15:54 Approved by: Kyle Lopez M.D. on 06/22/2025 at 15:58
== END ==
LOC: MRI 13:41
PROVIDERS: PCP Internal Medicine; Referring Provider Internal Medicine; Visit Provider Physical Medicine & Rehabilitation
DX: M48.02 Spinal stenosis, cervical region (principal); M50.31 Other cervical disc degeneration, high cervical region; M47.812 Spondylosis without myelopathy or radiculopathy, cervical region
CPT/HCPCS: 72141

== ENCOUNTER → 2025-07-12 07:04 | Outpatient (CLI) | payer MEDICARE, SELFPAY ==
[2025-06-09 11:35] VITALS: BMI 21.9
[2025-07-12 07:31] LABS: Hematocrit 33.4 % (36-46); Hemoglobin 11.5 g/dL (12.0-16.0); Mean Corpuscular HGB Conc 34.4 % (30-36); Mean Corpuscular Hemoglobin 30.8 PG (26-34); Mean Corpuscular Volume 89.5 fL (80-100); Platelet Count 381 X10^3/uL (150-400)
[2025-07-12 08:02] LABS: Alanine Aminotransferase 25 IU/L (<35); Albumin 4.4 g/dL (3.5-5.0); Albumin Globulin Ratio 1.3 (1.0-2.8); Alkaline Phosphatase 100 U/L (38-126); Blood Urea Nitrogen 11 mg/dL (7-17); Calcium 9.7 mg/dL (8.4-10.2); Carbon Dioxide 25 mmol/L (22-32); Chloride 102 mmol/L (98-107); Estimated Glomerular Filt Rate > 60 mL/min (>60); Globulin 3.3 g/dL (1.7-4.1); Glucose 90 mg/dL (70-99); HEMOLYSIS < 15 (0-50); Potassium 4.6 mmol/L (3.4-5.1); Sodium 137 mmol/L (137-145); Total Protein 7.7 g/dL (6.3-8.2)
== END ==
PROVIDERS: PCP Internal Medicine; Referring Provider Internal Medicine; Visit Provider Internal Medicine
DX: R79.89 Other specified abnormal findings of blood chemistry (principal); D64.9 Anemia, unspecified; E87.1 Hypo-osmolality and hyponatremia
CPT/HCPCS: 36415; 80053; 85027